=== PATIENT | female | born 1970 | race Caucasian/White ===

== ENCOUNTER 2018-02-15 13:55 | Observation (INO) | payer OTHER ==
[~2018-02-15] VITALS: Ht 160 cm; Wt 98.4 kg
[2018-02-15] MEDS ORDERED: ZOLP5 PO (14:20)
[2018-02-15 15:18] LABS: BASOPHILS ABSOLUTE AUTO 0.05 K/mm3 (0.00-0.23); BASOPHILS PERCENT AUTO 0 % (0-2); EOSINOPHILS ABSOLUTE AUTO 0.02 K/mm3 (0.00-0.68); EOSINOPHILS PERCENT AUTO 0 % (0-6); Hematocrit 44.6 % (33.0-51.0); Hemoglobin 14.9 g/dL (11.5-16.0); IMMATURE GRAN ABSOLUTE AUTO 0.09 K/mm3 (0.00-0.10); IMMATURE GRAN PERCENT AUTO 1 % (0-1); LYMPHOCYTES ABSOLUTE AUTO 3.16 K/mm3 (0.84-5.20); LYMPHOCYTES PERCENT AUTO 18 % (21-46); MONOCYTES ABSOLUTE AUTO 1.04 K/mm3 (0.16-1.47); MONOCYTES PERCENT AUTO 6 % (4-13); Mean Corpuscular HGB 30.8 pg (26.0-34.0); Mean Corpuscular HGB Conc 33.4 g/dL (31.5-36.5); Mean Corpuscular Volume 92 fL (80-100); Mean Platelet Volume 10.7 fL (9.1-12.4); NEUTROPHILS ABSOLUTE AUTO 13.15 K/mm3 (1.96-9.15); NEUTROPHILS PERCENT AUTO 75 % (41-73); Platelet Count 375 K/mm3 (150-400); RDW Coefficient Variation 14.4 % (11.7-14.2); RDW Standard Deviation 49.1 fL (35.1-46.3); Red Blood Cell Count 4.83 M/mm3 (3.80-5.20); White Blood Cell Count 17.51 K/mm3 (4.00-11.30)
[2018-02-15 15:36] LABS: Alanine Aminotransfer (ALT/SGP 61 U/L (12-78); Albumin, Blood 4.2 g/dL (3.4-5.0); Albumin/Globulin Ratio 1.2 (0.8-1.8); Alk Phos 98 U/L (50-136); Anion Gap 7 mmol/L (6-16); Aspartate Aminotrans (AST/SGOT 123 U/L (12-37); Bilirubin, Total 0.7 mg/dL (0.1-1.0); Blood Urea Nitrogen 13 mg/dL (8-24); Bun/Creatinine Ratio 25.6 (12.0-20.0); CO2, Blood 25 mmol/L (21-32); Calcium, Blood 9.4 mg/dL (8.5-10.1); Chloride, Blood 108 mmol/L (98-108); Creatinine, Blood 0.51 mg/dL (0.40-1.00); Globulin, Blood 3.6 g/dL (2.2-4.0); Glomerular Filtration Rate >60 (60-); Glucose, Blood 85 mg/dL (70-99); Potassium, Blood 3.6 mmol/L (3.5-5.5); Sodium, Blood 140 mmol/L (136-145); Total Protein, Blood 7.8 g/dL (6.4-8.2)
[2018-02-15] MEDS ORDERED: CYCL10 PO (21:54)
[2018-02-15] MEDS ORDERED: GABA600 PO (21:55)
[2018-02-15] MEDS ORDERED: AMLODIPINE-ATO1 EAC4 PO (21:58)
[2018-02-17] MEDS ORDERED: Percocet 10-321 EACH PO (14:05)
== END 2018-02-17 14:41 | disposition home or self-care (01) ==
LOC: ER 13:55 → SURS 13:56 → ER 18:21 → SURS 18:21
PROVIDERS: Emergency Medicine; Surgery
PROC: BF03YZZ Plain Radiography of Gallbladder and Bile Ducts using Other Contrast (ICD-10-PCS; 2018-02-16)
PROC: 0FT44ZZ Resection of Gallbladder, Percutaneous Endoscopic Approach (ICD-10-PCS; principal; 2018-02-16 08:15)
DX: K80.10 Calculus of gallbladder with chronic cholecystitis without obstruction (principal); I10 Essential (primary) hypertension; Z88.1 Allergy status to other antibiotic agents; Z79.899 Other long term (current) drug therapy
CPT/HCPCS: 36415; 74300; 76705; 80053; 83690; 85025; 88304; 93005; 93010; 96361; 96374; 96375; 96376; 99285-25; C1729; G0378; J0780; J1100; J1170; J1885; J2060; J2250; J2405; J2543; J2710; J3010; J7030

== ENCOUNTER 2018-03-02 23:07 | Observation (INO) | payer OTHER ==
[~2018-03-02] VITALS: Ht 177.8 cm; Wt 79.4 kg
[~2018-03-02 23:07] MED LIST: AMLODIPINE-ATO1 EAC4 PO; CYCL10 PO; GABA600 PO; Percocet 10-321 EACH PO; ZOLP5 PO
[2018-03-03 00:34] LABS: BASOPHILS ABSOLUTE AUTO 0.03 K/mm3 (0.00-0.23); BASOPHILS PERCENT AUTO 0 % (0-2); EOSINOPHILS ABSOLUTE AUTO 0.25 K/mm3 (0.00-0.68); EOSINOPHILS PERCENT AUTO 2 % (0-6); Hematocrit 43.9 % (33.0-51.0); Hemoglobin 14.5 g/dL (11.5-16.0); IMMATURE GRAN ABSOLUTE AUTO 0.06 K/mm3 (0.00-0.10); IMMATURE GRAN PERCENT AUTO 0 % (0-1); LYMPHOCYTES ABSOLUTE AUTO 3.45 K/mm3 (0.84-5.20); LYMPHOCYTES PERCENT AUTO 24 % (21-46); MONOCYTES ABSOLUTE AUTO 1.04 K/mm3 (0.16-1.47); MONOCYTES PERCENT AUTO 7 % (4-13); Mean Corpuscular Volume 94 fL (80-100); Mean Platelet Volume 10.8 fL (9.1-12.4); NEUTROPHILS ABSOLUTE AUTO 9.67 K/mm3 (1.96-9.15); NEUTROPHILS PERCENT AUTO 67 % (41-73); Platelet Count 336 K/mm3 (150-400); RDW Standard Deviation 48.3 fL (35.1-46.3); Red Blood Cell Count 4.67 M/mm3 (3.80-5.20)
[2018-03-03 00:55] LABS: Alanine Aminotransfer (ALT/SGP 24 U/L (12-78); Albumin, Blood 4.1 g/dL (3.4-5.0); Alk Phos 91 U/L (50-136); Anion Gap 7 mmol/L (6-16); Aspartate Aminotrans (AST/SGOT 13 U/L (12-37); Bilirubin, Total 0.3 mg/dL (0.1-1.0); Blood Urea Nitrogen 10 mg/dL (8-24); Bun/Creatinine Ratio 18.7 (12.0-20.0); CO2, Blood 27 mmol/L (21-32); Calcium, Blood 9.3 mg/dL (8.5-10.1); Chloride, Blood 105 mmol/L (98-108); Creatinine, Blood 0.54 mg/dL (0.40-1.00); Globulin, Blood 4.3 g/dL (2.2-4.0); Glomerular Filtration Rate >60 (60-); Glucose, Blood 92 mg/dL (70-99); Potassium, Blood 3.7 mmol/L (3.5-5.5); Sodium, Blood 139 mmol/L (136-145); Total Protein, Blood 8.4 g/dL (6.4-8.2)
[2018-03-03] MEDS ORDERED: GABA300 PO (04:16)
[2018-03-03] MEDS ORDERED: AMLO5 PO (04:17)
[2018-03-03] MEDS ORDERED: NAPR500 PO (04:17)
[2018-03-03] MEDS ORDERED: FAMO10 PO (04:18)
[2018-03-03 08:24] LABS: BASOPHILS ABSOLUTE AUTO 0.03 K/mm3 (0.00-0.23); BASOPHILS PERCENT AUTO 0 % (0-2); EOSINOPHILS PERCENT AUTO 1 % (0-6); Hematocrit 42.7 % (33.0-51.0); IMMATURE GRAN ABSOLUTE AUTO 0.04 K/mm3 (0.00-0.10); IMMATURE GRAN PERCENT AUTO 0 % (0-1); LYMPHOCYTES ABSOLUTE AUTO 3.88 K/mm3 (0.84-5.20); LYMPHOCYTES PERCENT AUTO 28 % (21-46); MONOCYTES ABSOLUTE AUTO 1.14 K/mm3 (0.16-1.47); MONOCYTES PERCENT AUTO 8 % (4-13); Mean Corpuscular HGB 31.3 pg (26.0-34.0); Mean Corpuscular HGB Conc 32.8 g/dL (31.5-36.5); Mean Corpuscular Volume 95 fL (80-100); Mean Platelet Volume 10.5 fL (9.1-12.4); NEUTROPHILS ABSOLUTE AUTO 8.58 K/mm3 (1.96-9.15); NEUTROPHILS PERCENT AUTO 62 % (41-73); Platelet Count 284 K/mm3 (150-400); RDW Standard Deviation 49.5 fL (35.1-46.3); Red Blood Cell Count 4.48 M/mm3 (3.80-5.20); White Blood Cell Count 13.77 K/mm3 (4.00-11.30)
[2018-03-03 08:29] LABS: Anion Gap 9 mmol/L (6-16); Blood Urea Nitrogen 7 mg/dL (8-24); Bun/Creatinine Ratio 16.2 (12.0-20.0); CO2, Blood 21 mmol/L (21-32); Calcium, Blood 8.6 mg/dL (8.5-10.1); Chloride, Blood 108 mmol/L (98-108); Creatinine, Blood 0.43 mg/dL (0.40-1.00); Glomerular Filtration Rate >60 (60-); Glucose, Blood 84 mg/dL (70-99); Potassium, Blood 4.8 mmol/L (3.5-5.5); Sodium, Blood 138 mmol/L (136-145)
[2018-03-04] MEDS ORDERED: Percocet 5-3251 EACH PO (11:52)
== END 2018-03-04 12:36 | disposition home or self-care (01) ==
LOC: ER 23:07 → SURS 23:08
PROVIDERS: Emergency Medicine; Surgery
PROC: 0WJF0ZZ Inspection of Abdominal Wall, Open Approach (ICD-10-PCS; principal; 2018-03-03 16:00)
DX: T81.4XXA Infection following a procedure, initial encounter (principal); L03.316 Cellulitis of umbilicus; I10 Essential (primary) hypertension; Z87.891 Personal history of nicotine dependence; Z90.49 Acquired absence of other specified parts of digestive tract; Z88.1 Allergy status to other antibiotic agents
CPT/HCPCS: 36415; 74177; 80048; 80053; 83605; 83690; 85025; 96361; 96374; 96375; 96376; 99285-25; G0378; J1100; J1170; J1885; J2060; J2250; J2405; J2710; J3010; J7030; J7120; Q9967

== ENCOUNTER 2018-07-03 10:28 | Emergency (ER) | payer SELFPAY ==
[~2018-07-03] VITALS: Ht 160 cm; Wt 90.7 kg
[~2018-07-03 10:28] MED LIST changes: +AMLO5 PO; +FAMO10 PO; +GABA300 PO; +NAPR500 PO; +Percocet 5-3251 EACH PO
[2018-07-03] MEDS ORDERED: FAMO20 (10:57)
[2018-07-03] MEDS ORDERED: Norco 5-325 Ta1 EACH PO (11:34)
== END 2018-07-03 11:37 | disposition home or self-care (01) ==
LOC: ER 10:28
DX: S46.001A Unspecified injury of muscle(s) and tendon(s) of the rotator cuff of right shoulder, initial encounter (principal); X50.9XXA Other and unspecified overexertion or strenuous movements or postures, initial encounter; Z88.1 Allergy status to other antibiotic agents; Z79.899 Other long term (current) drug therapy; I10 Essential (primary) hypertension; K21.9 Gastro-esophageal reflux disease without esophagitis; Z87.891 Personal history of nicotine dependence
CPT/HCPCS: 99282

== ENCOUNTER 2018-09-27 13:28 | Emergency (ER) | payer SELFPAY ==
[~2018-09-27] VITALS: Ht 160 cm; Wt 90.7 kg
[~2018-09-27 13:28] MED LIST changes: +FAMO20; +Norco 5-325 Ta1 EACH PO
[2018-09-27] MEDS ORDERED: Naprosyn500 MG PO (13:57)
[2018-09-27] MEDS ORDERED: CEFP200 PO (13:57)
== END 2018-09-27 14:02 | disposition home or self-care (01) ==
LOC: ER 13:28
DX: H66.92 Otitis media, unspecified, left ear (principal); Z88.1 Allergy status to other antibiotic agents; Z79.899 Other long term (current) drug therapy; Z87.891 Personal history of nicotine dependence

== ENCOUNTER 2019-08-06 15:54 | Emergency (ER) | payer SELFPAY ==
[~2019-08-06] VITALS: Ht 160 cm; Wt 77.1 kg
[~2019-08-06 15:54] MED LIST changes: +ACET325 PO; +CEFP200 PO; +CLARITIN10 MG PO; +Cleocin HCl150 MG PO; +Naprosyn500 MG PO; +Prednisone20 MG PO
[2019-08-06] MEDS ORDERED: ACETAMINOPHEN500 MG PO (18:16)
[2019-08-06] MEDS ORDERED: KETO10 PO (18:16)
== END 2019-08-06 18:53 | disposition home or self-care (01) ==
LOC: ER 15:54
DX: S50.11XA Contusion of right forearm, initial encounter (principal); W22.8XXA Striking against or struck by other objects, initial encounter; Z88.1 Allergy status to other antibiotic agents; Z79.899 Other long term (current) drug therapy; Z87.891 Personal history of nicotine dependence
CPT/HCPCS: 36415; 73090; 96374; 99283-25; J3010

== ENCOUNTER 2019-08-29 21:27 | Observation (INO) | payer SELFPAY ==
[~2019-08-29] VITALS: Ht 160 cm; Wt 77.1 kg
[~2019-08-29 21:27] MED LIST changes: +ACETAMINOPHEN500 MG PO; +KETO10 PO
[2019-08-29] MEDS ORDERED: MIRT15 PO (22:20)
[2019-08-29] MEDS ORDERED: CLON.1 PO (22:20)
[2019-08-29] MEDS ORDERED: AMLO5 PO (22:20)
[2019-08-29 22:31] LABS: Source, Urine Clean Catch
[2019-08-29 22:35] LABS: Bilirubin, Urine Neg (Neg); Blood, Urine 1+ (Neg); Glucose Qualitative, Urine Neg (Neg); Ketones, Urine Neg (Neg); Leukocyte Esterase, Urine Neg (Neg); Nitrite, Urine Neg (Neg); Protein, Urine 1+ (Neg); Urobilinogen, Urine NORM (Normal)
[2019-08-29 22:48] LABS: U Amphetamine Screen Not Detected; U Barbituate Screen Not Detected; U Benzodiazapine Screen Not Detected; U Buprenorphine Screen Not Detected; U Cannabinoids Screen DETECTED; U Cocaine Screen Not Detected; U Methadone Screen Not Detected; U Methamphetamine Screen Not Detected; U Opiates Screen Not Detected; U Oxycodone Screen Not Detected; U Phencyclidine Screen Not Detected; U Propoxyphene Screen Not Detected
[2019-08-29 22:53] LABS: Appearance, Urine Clear (Clear); Bacteria Not Seen /hpf; Color, Urine Yellow (P-Yellow); Red Blood Cells, Urine 0-2 /hpf (0-2); Squamous Epithelial Cells Few /hpf (Few); White Blood Cells, Urine Not Seen /hpf (0-5)
[2019-08-29 23:47] LABS: BASOPHILS ABSOLUTE AUTO 0.04 K/mm3 (0.00-0.23); BASOPHILS PERCENT AUTO 0 % (0-2); EOSINOPHILS ABSOLUTE AUTO 0.18 K/mm3 (0.00-0.68); EOSINOPHILS PERCENT AUTO 1 % (0-6); Hematocrit 46.9 % (33.0-51.0); Hemoglobin 15.5 g/dL (11.5-16.0); IMMATURE GRAN ABSOLUTE AUTO 0.03 K/mm3 (0.00-0.10); IMMATURE GRAN PERCENT AUTO 0 % (0-1); LYMPHOCYTES ABSOLUTE AUTO 3.92 K/mm3 (0.84-5.20); LYMPHOCYTES PERCENT AUTO 32 % (21-46); MONOCYTES ABSOLUTE AUTO 0.72 K/mm3 (0.16-1.47); MONOCYTES PERCENT AUTO 6 % (4-13); Mean Corpuscular HGB 30.5 pg (26.0-34.0); Mean Corpuscular Volume 92 fL (80-100); Mean Platelet Volume 11.1 fL (9.1-12.4); NEUTROPHILS ABSOLUTE AUTO 7.57 K/mm3 (1.96-9.15); NEUTROPHILS PERCENT AUTO 61 % (41-73); Platelet Count 306 K/mm3 (150-400); RDW Coefficient Variation 13.2 % (11.7-14.2); RDW Standard Deviation 45.5 fL (35.1-46.3); Red Blood Cell Count 5.09 M/mm3 (3.80-5.20); White Blood Cell Count 12.46 K/mm3 (4.00-11.30)
[2019-08-30 00:05] LABS: Alanine Aminotransfer (ALT/SGP 24 U/L (12-78); Albumin, Blood 4.2 g/dL (3.4-5.0); Albumin/Globulin Ratio 1.1 (0.8-1.8); Alk Phos 63 U/L (50-136); Anion Gap 6 mmol/L (6-16); Aspartate Aminotrans (AST/SGOT 25 U/L (12-37); Bilirubin, Total 0.1 mg/dL (0.1-1.0); Blood Urea Nitrogen 19 mg/dL (8-24); Bun/Creatinine Ratio 31.3 (12.0-20.0); CO2, Blood 27 mmol/L (21-32); Calcium, Blood 9.6 mg/dL (8.5-10.1); Chloride, Blood 107 mmol/L (98-108); Creatinine, Blood 0.61 mg/dL (0.40-1.00); Ethanol (Alcohol), Blood, Med <3 mg/dL; Globulin, Blood 3.7 g/dL (2.2-4.0); Glomerular Filtration Rate >60 (60-); Glucose, Blood 103 mg/dL (70-99); Potassium, Blood 3.4 mmol/L (3.5-5.5); Salicylate <1.7 mg/dL (2.8-20.0); Sodium, Blood 140 mmol/L (136-145); Total Protein, Blood 7.9 g/dL (6.4-8.2)
[2019-08-30 00:19] LABS: Acetaminophen, Random <2.0 ug/mL (10.0-30.0)
== END 2019-08-31 13:38 | disposition home or self-care (01) ==
LOC: ER 21:27 → EOR 21:28
PROVIDERS: Physician Assistant; ADMIT Emergency Medicine
DX: F31.60 Bipolar disorder, current episode mixed, unspecified (principal); F60.3 Borderline personality disorder; I10 Essential (primary) hypertension; Z87.891 Personal history of nicotine dependence
CPT/HCPCS: 36415; 80053; 81001; 81025; 85025; 99285; G0378; G0480; Q0163; Q3014

== ENCOUNTER 2019-09-13 15:36 | Observation (INO) | payer OTHER ==
[~2019-09-13] VITALS: Ht 162.6 cm; Wt 77.1 kg
[~2019-09-13 15:36] MED LIST changes: +CLON.1 PO; +MIRT15 PO
[2019-09-13] MEDS ORDERED: AMLO5 PO (16:16)
[2019-09-13] MEDS ORDERED: CLON1 PO (16:16)
[2019-09-13] MEDS ORDERED: AMLO10 PO (16:17)
[2019-09-13] MEDS ORDERED: OLAN10 PO (16:17)
[2019-09-13] MEDS ORDERED: CLON.1 PO (16:17)
[2019-09-13] MEDS ORDERED: MIRT15 PO (16:19)
[2019-09-13 16:32] LABS: BASOPHILS ABSOLUTE AUTO 0.02 K/mm3 (0.00-0.23); BASOPHILS PERCENT AUTO 0 % (0-2); EOSINOPHILS ABSOLUTE AUTO 0.09 K/mm3 (0.00-0.68); EOSINOPHILS PERCENT AUTO 1 % (0-6); Hematocrit 42.1 % (33.0-51.0); Hemoglobin 14.2 g/dL (11.5-16.0); IMMATURE GRAN ABSOLUTE AUTO 0.04 K/mm3 (0.00-0.10); IMMATURE GRAN PERCENT AUTO 0 % (0-1); LYMPHOCYTES ABSOLUTE AUTO 3.32 K/mm3 (0.84-5.20); LYMPHOCYTES PERCENT AUTO 34 % (21-46); MONOCYTES ABSOLUTE AUTO 0.48 K/mm3 (0.16-1.47); MONOCYTES PERCENT AUTO 5 % (4-13); Mean Corpuscular HGB 30.9 pg (26.0-34.0); Mean Corpuscular HGB Conc 33.7 g/dL (31.5-36.5); Mean Corpuscular Volume 92 fL (80-100); Mean Platelet Volume 10.4 fL (9.1-12.4); NEUTROPHILS ABSOLUTE AUTO 5.95 K/mm3 (1.96-9.15); NEUTROPHILS PERCENT AUTO 60 % (41-73); Platelet Count 337 K/mm3 (150-400); RDW Standard Deviation 47.6 fL (35.1-46.3)
[2019-09-13 16:55] LABS: Alanine Aminotransfer (ALT/SGP 28 U/L (12-78); Albumin, Blood 3.9 g/dL (3.4-5.0); Alk Phos 54 U/L (50-136); Anion Gap 5 mmol/L (6-16); Aspartate Aminotrans (AST/SGOT 25 U/L (12-37); Bilirubin, Total 0.3 mg/dL (0.1-1.0); Blood Urea Nitrogen 13 mg/dL (8-24); Bun/Creatinine Ratio 29.3 (12.0-20.0); CO2, Blood 25 mmol/L (21-32); Calcium, Blood 9.4 mg/dL (8.5-10.1); Chloride, Blood 108 mmol/L (98-108); Creatinine, Blood 0.44 mg/dL (0.40-1.00); Globulin, Blood 3.8 g/dL (2.2-4.0); Glomerular Filtration Rate >60 (60-); Glucose, Blood 96 mg/dL (70-99); Potassium, Blood 3.8 mmol/L (3.5-5.5); Salicylate <1.7 mg/dL (2.8-20.0); Sodium, Blood 138 mmol/L (136-145); Total Protein, Blood 7.7 g/dL (6.4-8.2)
[2019-09-13 17:13] LABS: Acetaminophen, Random <2.0 ug/mL (10.0-30.0); Ethanol (Alcohol), Blood, Med <3 mg/dL
[2019-09-13 18:19] LABS: Source, Urine Voided
[2019-09-13 18:30] LABS: Appearance, Urine Clear (Clear); Bilirubin, Urine Neg (Neg); Blood, Urine Neg (Neg); Color, Urine Yellow (P-Yellow); Glucose Qualitative, Urine Neg (Neg); Ketones, Urine Neg (Neg); Leukocyte Esterase, Urine Neg (Neg); Nitrite, Urine Neg (Neg); Protein, Urine Neg (Neg); Specific Gravity, Urine 1.015 (1.003-1.022); Urobilinogen, Urine NORM (Normal); pH, Urine 6.5 (5.0-8.0)
[2019-09-13 18:46] LABS: U Amphetamine Screen Not Detected; U Barbituate Screen Not Detected; U Benzodiazapine Screen Not Detected; U Buprenorphine Screen Not Detected; U Cannabinoids Screen DETECTED; U Cocaine Screen Not Detected; U Methadone Screen Not Detected; U Methamphetamine Screen Not Detected; U Opiates Screen Not Detected; U Oxycodone Screen Not Detected; U Phencyclidine Screen Not Detected; U Propoxyphene Screen Not Detected
[2019-09-14] MEDS ORDERED: RISP2 PO (14:38)
== END 2019-09-14 15:05 | disposition home or self-care (01) ==
LOC: ER 15:36 → EOR 15:37
PROVIDERS: ADMIT Emergency Medicine
DX: F32.9 Major depressive disorder, single episode, unspecified (principal); I10 Essential (primary) hypertension; Z88.1 Allergy status to other antibiotic agents; Z87.891 Personal history of nicotine dependence; Z79.899 Other long term (current) drug therapy
CPT/HCPCS: 80053; 81003; 81025; 85025; 99285; G0378; G0480; Q3014

== ENCOUNTER 2019-09-14 19:29 | Inpatient (IN) | payer OTHER ==
[~2019-09-14] VITALS: Ht 160 cm; Wt 80.6 kg
[~2019-09-14 19:29] MED LIST changes: +AMLO10 PO; +CLON1 PO; +OLAN10 PO; +RISP2 PO
[2019-09-14 20:16] LABS: BASOPHILS ABSOLUTE AUTO 0.03 K/mm3 (0.00-0.23); BASOPHILS PERCENT AUTO 0 % (0-2); EOSINOPHILS ABSOLUTE AUTO 0.11 K/mm3 (0.00-0.68); EOSINOPHILS PERCENT AUTO 1 % (0-6); Hematocrit 38.6 % (33.0-51.0); Hemoglobin 12.6 g/dL (11.5-16.0); IMMATURE GRAN ABSOLUTE AUTO 0.04 K/mm3 (0.00-0.10); IMMATURE GRAN PERCENT AUTO 0 % (0-1); LYMPHOCYTES ABSOLUTE AUTO 2.81 K/mm3 (0.84-5.20); LYMPHOCYTES PERCENT AUTO 25 % (21-46); MONOCYTES ABSOLUTE AUTO 0.58 K/mm3 (0.16-1.47); MONOCYTES PERCENT AUTO 5 % (4-13); Mean Corpuscular HGB 30.1 pg (26.0-34.0); Mean Corpuscular HGB Conc 32.6 g/dL (31.5-36.5); Mean Corpuscular Volume 92 fL (80-100); Mean Platelet Volume 10.7 fL (9.1-12.4); NEUTROPHILS ABSOLUTE AUTO 7.84 K/mm3 (1.96-9.15); NEUTROPHILS PERCENT AUTO 69 % (41-73); Platelet Count 307 K/mm3 (150-400); RDW Coefficient Variation 14.2 % (11.7-14.2); RDW Standard Deviation 48.7 fL (35.1-46.3); Red Blood Cell Count 4.18 M/mm3 (3.80-5.20); White Blood Cell Count 11.41 K/mm3 (4.00-11.30)
[2019-09-14 20:30] LABS: Alanine Aminotransfer (ALT/SGP 30 U/L (12-78); Albumin, Blood 3.5 g/dL (3.4-5.0); Albumin/Globulin Ratio 0.9 (0.8-1.8); Alk Phos 49 U/L (50-136); Anion Gap 6 mmol/L (6-16); Aspartate Aminotrans (AST/SGOT 20 U/L (12-37); Bilirubin, Total 0.1 mg/dL (0.1-1.0); Blood Urea Nitrogen 16 mg/dL (8-24); Bun/Creatinine Ratio 26.5 (12.0-20.0); CO2, Blood 25 mmol/L (21-32); Calcium, Blood 9.5 mg/dL (8.5-10.1); Chloride, Blood 109 mmol/L (98-108); Globulin, Blood 3.7 g/dL (2.2-4.0); Glomerular Filtration Rate >60 (60-); Glucose, Blood 141 mg/dL (70-99); Potassium, Blood 3.8 mmol/L (3.5-5.5); Sodium, Blood 140 mmol/L (136-145); Total Protein, Blood 7.2 g/dL (6.4-8.2); Troponin I <0.015 ng/mL (0.000-0.040)
[2019-09-14 20:31] LABS: Source, Urine Catheter
[2019-09-14 20:37] LABS: Bilirubin, Urine Neg (Neg); Blood, Urine Neg (Neg); Glucose Qualitative, Urine Neg (Neg); Ketones, Urine Neg (Neg); Leukocyte Esterase, Urine Neg (Neg); Nitrite, Urine Neg (Neg); Protein, Urine Neg (Neg); Urobilinogen, Urine NORM (Normal)
[2019-09-14 20:43] LABS: Appearance, Urine Clear (Clear); Color, Urine Yellow (P-Yellow)
[2019-09-14 20:57] LABS: U Amphetamine Screen Not Detected; U Barbituate Screen Not Detected; U Benzodiazapine Screen DETECTED; U Buprenorphine Screen Not Detected; U Cannabinoids Screen DETECTED; U Cocaine Screen Not Detected; U Methadone Screen Not Detected; U Methamphetamine Screen Not Detected; U Opiates Screen Not Detected; U Oxycodone Screen Not Detected; U Phencyclidine Screen Not Detected; U Propoxyphene Screen Not Detected
[2019-09-14 21:25] LABS: International Normalized Ratio 0.94; Prothrombin Time Results 10.1 Sec (9.7-11.5)
[2019-09-14 21:44] LABS: Acetaminophen, Random <2.0 ug/mL (10.0-30.0); Ethanol (Alcohol), Blood, Med <3 mg/dL; Salicylate <1.7 mg/dL (2.8-20.0)
[2019-09-15 00:20] LABS: Base Excess Venous -0.4 mmol/L; PCO2 Venous 42.4 mmHg (38-42); PO2 Venous 110 mmHg (38-42); pH Blood Venous 7.38 (7.34-7.37)
--- NOTE | 2019-09-15 00:35 | NUR ---
ASSUMPTION OF CARE: REPORT RECIEVED FROM TELEPHONE ANSWERERNEAL Berrios, PATIENT ARRIVED TO ICU 16 AT APPR[address] [facility] FROM ER. PATIENT RESPONDS TO STERNAL PRESSURE AND WILL STATE YES OR NO BUT IMMEDIATLY FALLS BACK TO SLEEP, LETHARGIC. PATIENT TRANSFERED FROM [facility] TO ICU BED VIA SLIDE SHEET ADN 5 STAFF, PATIENT PLACED ON 2L O2 FOR SATURATION AVERAGING 87%, O2 SATURATION THEN INCREASED TO 95%. PATIENT BLOOD PRESSURES LOW FLUCTUATING BETWEEN SYSTOLIC 75 TO 85 WITH MAP RANGING FROM 60 TO 68, GEOGRAPHY FACULTY MEMBER NORI AT BEDSIDE AND ORDERS RECIEVED, SEE EMAR. PATIENTS BP SLOWLY IMPROVING WITH BOLUSES AND MEDICATION ADMIN (SEE EMAR). PATIENT SKIN C/D/I, BILATERAL WRIST RESTRAINTS IN PLACE AND SKIN CHECK COMPLETED WITH NO SIGN OF SKIN IRRITATION NOTED, PULSES AND CIRRCULATION INTACT. PATIENT HAS INTERMITTENT EPISODES OF THRASHING IN BED AND PULLING AT LINES AND TUBES THAT SHE CAN REACH, ALL LINES AND TUBES HIDDEN POSSIBLE, 1:1 SITTER OBSERVING. BOTELLO IN PLACE, PATENT AND DRAINING TO GRAVITY PER MD ORDERS. ALL ROOM ASSESSMENTS COMPLETED FOR SI PATIENT, MONITORING CLOSELY. UPDATED POISON CONTROL OVER PHONE AT APPROX 0030 ADMISSION NOT FULLY COMPLETED PATIENT IS UNABLE TO ANSWER QUESTIONS AT THIS TIME.
--- NOTE | 2019-09-15 02:05 | NUR ---
SUICIDE SEVERITY RISK ASSESSMENT: PATIENT IS KEPT AT SAME RISK LEVEL D/T THE PATIENTS INABILITY TO ANSWER QUESTIONS, TOO LETHARGIC, MD AWARE.
--- NOTE | 2019-09-15 05:42 | NUR ---
SHIFT SUMMARY: PATIENT REMAINED LETHARGIC BUT AROUSABLE TO TOUCH THROUGHOUT SHIFT. PATIENT BLOOD PRESSURES IMPROVING STEADILY THROUGHOUT SHIFT, SWITCHED FROM NS TO LR PER PHARMACY RETAIL SUPPORT SPECIALIST ORDERS. PATIENT O2 SAT FLUCTUATING BETWEEN 87 AND 89%, 5L NC REQUIRED TO KEEP HER AT APPROX 90 TO 95% SATURATION. ALL OTHER VSS, SITTER PRESENT FOR 1:1, RESTRAINTS D/C'D AT APPROX 0230 PATIENT IS SLEEPING AND NOT PULLING AT LINES OR TUBES. SCD'S ATTEMPTED BUT PATIENT AGGITATED WITH THEM ON.
--- NOTE | 2019-09-15 07:05 | NUR ---
REPORT FROM SANGEETA DE JESUS. ASSUMED PT CARE. SITTER ROOM SIDE FOR PT SAFETY. LAURENCE.
[2019-09-15 08:00] LABS: BASOPHILS ABSOLUTE AUTO 0.01 K/mm3 (0.00-0.23); BASOPHILS PERCENT AUTO 0 % (0-2); EOSINOPHILS ABSOLUTE AUTO 0.08 K/mm3 (0.00-0.68); EOSINOPHILS PERCENT AUTO 1 % (0-6); Hematocrit 33.6 % (33.0-51.0); Hemoglobin 11.3 g/dL (11.5-16.0); IMMATURE GRAN ABSOLUTE AUTO 0.02 K/mm3 (0.00-0.10); IMMATURE GRAN PERCENT AUTO 0 % (0-1); LYMPHOCYTES ABSOLUTE AUTO 2.14 K/mm3 (0.84-5.20); LYMPHOCYTES PERCENT AUTO 28 % (21-46); MONOCYTES ABSOLUTE AUTO 0.55 K/mm3 (0.16-1.47); MONOCYTES PERCENT AUTO 7 % (4-13); Mean Corpuscular HGB 30.9 pg (26.0-34.0); Mean Corpuscular HGB Conc 33.6 g/dL (31.5-36.5); Mean Corpuscular Volume 92 fL (80-100); Mean Platelet Volume 10.7 fL (9.1-12.4); NEUTROPHILS ABSOLUTE AUTO 4.78 K/mm3 (1.96-9.15); NEUTROPHILS PERCENT AUTO 63 % (41-73); Platelet Count 238 K/mm3 (150-400); RDW Coefficient Variation 13.9 % (11.7-14.2); RDW Standard Deviation 47.3 fL (35.1-46.3); Red Blood Cell Count 3.66 M/mm3 (3.80-5.20); White Blood Cell Count 7.58 K/mm3 (4.00-11.30)
[2019-09-15 08:19] LABS: Alanine Aminotransfer (ALT/SGP 22 U/L (12-78); Albumin/Globulin Ratio 1.1 (0.8-1.8); Alk Phos 40 U/L (50-136); Anion Gap 5 mmol/L (6-16); Aspartate Aminotrans (AST/SGOT 16 U/L (12-37); Bilirubin, Total 0.4 mg/dL (0.1-1.0); Blood Urea Nitrogen 12 mg/dL (8-24); Bun/Creatinine Ratio 28.2 (12.0-20.0); CO2, Blood 25 mmol/L (21-32); Calcium, Blood 8.8 mg/dL (8.5-10.1); Chloride, Blood 112 mmol/L (98-108); Creatinine, Blood 0.43 mg/dL (0.40-1.00); Globulin, Blood 2.8 g/dL (2.2-4.0); Glomerular Filtration Rate >60 (60-); Glucose, Blood 109 mg/dL (70-99); Potassium, Blood 3.7 mmol/L (3.5-5.5); Sodium, Blood 142 mmol/L (136-145); Total Protein, Blood 5.8 g/dL (6.4-8.2)
--- NOTE | 2019-09-15 08:40 | NUR ---
DR MONTEIRO AT BEDSIDE. PLAN TO CONTINUE TO MONITOR.
--- NOTE | 2019-09-15 09:17 | NUR ---
KYLE HUGHES WITH ATTEMPTED TO SEE PT FOR ROUNDING. PT UNABLE TO PARTICIPATE IN SAFETY PLAN.
--- NOTE | 2019-09-15 09:47 | NUR ---
Unable to engage patient in Safety Plan due to over-riding medical issues and drowsiness. Pt could not acknowledge my presence. RN notified and agreed that tomorrow might be a possibility, as medically patient is not able to be discharged. Renetta Lubin M.Ed., [facility]
--- NOTE | 2019-09-15 10:41 | NUR ---
UPDATED POISON CONTROL RE LABS/VS/MEDICATIONS. THEY PLAN TO CALL AGAIN LATER.
--- NOTE | 2019-09-15 16:00 | NUR ---
SPOKE WITH PT ON PHONE. UPDATE PROVIDED.
--- NOTE | 2019-09-15 17:15 | NUR ---
BINMAN ASSISTED FEEING PT.
--- NOTE | 2019-09-15 17:58 | NUR ---
Per admit trigger, I was tasked to meet with Funmilayo to calvin prayewr and encouragement. Today, she is not lucid and very sleepy. Prayer provided at bedside, and I will attempt conversation in coming days.
--- NOTE | 2019-09-15 18:00 | NUR ---
SHIFT SUMMARY PT REMAINS 1:1 WITH A SITTER OUTSIDE DOOR. PT MORE INTERACTIVE AT END OF SHIFT. PT STILL HAVING HYPOTENSION DESPITE FLUIDS. MAP MOSTLY GREATER THAN 65. KYLE HUGHES ATTEMPT TO ROUND ON PT THIS AM. PT NOT AWAKE ENOUGH FOR EVAL. DR FLEMING ATTEMPT TO ROUND ON PT AND PT NOT AWAKE ENOUGH TO PARTICIPATE IN INTERVIEW. PT BOTELLO DRAINING LORENZO COLORED URINE. PT HAD PRODUCTIVE COUGH THIS MORNING AFTER ORAL CARE. THICK PHLEGM COUGHED UP. LR STILL INFUSING AT 300ML/HR. URINE OUTPUT 420ML. PT ALERT TO SELF ONLY. SKIN WNL, ABRASIONS TO ARMS LOOK HEALED. BOWEL SOUNDS HYPOACTIVE. PT TOLERATED CLEAR LIQUIDS. WILL CONT TO MONITOR AND REPORT TO ONCOMING SHIFT.
--- NOTE | 2019-09-15 18:24 | NUR ---
PT SHIVERING. TEMP 99.3, BP 78/43 MAP 59. PLAN TO START LR BOLUS PER EMAR. WARM BLANKET PROVIDED AT THIS TIME. PT C/O RIGHT SHOULDER PAIN.
--- NOTE | 2019-09-15 19:15 | NUR ---
ASSUME CARE: REPORT RECIEVED FROM RU OFF GOING RN. MONITOR INTACT SHOWING SINUS TACH HEART RATE 100'S-110'S. .LR BOLUS INFUSING SECONDARY TO LOW BLOOD PRESSURES. LUNG SOUNDS CLEAR IN THE UPPER LOBES WITH DECREASED SOUNDS IN THE BASES. SPO2 WITH O2 AT 5L/MIN PER NASAL CANNULA 93-98% ABDOMEN SOFT WITH BOWEL SOUNDS FOUR QUADS. BOTELLO PATENT DRAINING LORENZO URINE. PEDAL PULSES PRESENT NO EDEMA NOTED. CONTINUE TO MONITOR AND REPORT CHANGE IN PATEINT CONDITION.
--- NOTE | 2019-09-15 20:00 | NUR ---
ABELINO OLEO HASHER AND RENDERER NOTIFIED OF CONTINUING LOW BLOOD PRESSURES WITH MAP LESS THAN 65. ORDERS NOTED. BOLUS OF LR STARTED
[2019-09-16 04:10] LABS: Alanine Aminotransfer (ALT/SGP 22 U/L (12-78); Albumin, Blood 2.9 g/dL (3.4-5.0); Alk Phos 39 U/L (50-136); Anion Gap 8 mmol/L (6-16); Aspartate Aminotrans (AST/SGOT 17 U/L (12-37); Bilirubin, Total 0.5 mg/dL (0.1-1.0); Blood Urea Nitrogen 13 mg/dL (8-24); Bun/Creatinine Ratio 26.5 (12.0-20.0); CO2, Blood 23 mmol/L (21-32); Calcium, Blood 8.4 mg/dL (8.5-10.1); Chloride, Blood 104 mmol/L (98-108); Creatinine, Blood 0.49 mg/dL (0.40-1.00); Globulin, Blood 2.9 g/dL (2.2-4.0); Glomerular Filtration Rate >60 (60-); Glucose, Blood 121 mg/dL (70-99); Potassium, Blood 3.7 mmol/L (3.5-5.5); Sodium, Blood 135 mmol/L (136-145); Total Protein, Blood 5.8 g/dL (6.4-8.2)
--- NOTE | 2019-09-16 06:51 | NUR ---
ASHIFT SUMMARY RESTS QUIETLY WHEN UNDISTURBED MONITOR INTACT SHOWING SINUS TACH HEART RATE 100'S-110'S. LUNG SOUNDS CLEAR UPPER LOBES WITH DECREASED SOUNDS IN THE BASES. RESPIRATIONS REGULAR AND EASY WITH O2 IN PLACE AT 5L/MIN PER NASAL CANNULA SPOL2 89-97% FREQUENT REMINDERS TO LEAVE O2 IN NARES. ABDOMEN SOFT WITH BOWEL SOUNDS FOUR QUADS. BOTELLO PATENT DRAINING DK LORENZO URINE. GENERALIZED DEPENDENT EDMA TO UPPER EXTREMITIES. HAS RECIEVED TWO 1000ML BOLUSES THIS SHIFT. CONTINUE TO MONITOR AND REPORT CHANGE IN PATIENT CONDITION. ONE TO ONE SITTER REMAINS.
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
--- NOTE | 2019-09-16 10:07 | NUR ---
DR MONTEIRO: PROVIDER AT BEDSIDE TO EVAL PT AT APPROX 0900. HE HAS SPOKEN W/ EARLENE Wan, RN, ABOUT POC. STS OKAY FOR PT TO HAVE REGULAR DIET & IF PT REMAINS STABLE THIS AFTERNOON, MAY BE PCU STATUS.
--- NOTE | 2019-09-16 11:40 | NUR ---
CALL TO PROVIDER: THIS RN CALLED DR MONTEIRO AFTER PT HAVING CONTINUED C/O HEADACHE & SHOULDER PAIN THAT IS WORSENING. INFORMED PT THAT SHE SHOULD NOT TAKE ANYTHING THAT MAY MAKE HER DROWSY DR FLEMING HAS YET TO SEE HER. SHE STS THAT SHE HAS TAKEN TORADOL BEFORE & THAT THE MEDICATION WORKED WELL FOR HER. NOTIFIED DR MONTEIRO OF THIS & HE STS HE WILL BE PLACING ORDERS FOR TORADOL & TYLENOL ALSO.
--- NOTE | 2019-09-16 13:04 | NUR ---
PT c/o nausea. RN notifed. Pt tossing and turning in bed. moaning saying her anxitey is high do to not see her the last week do to being in here and also found out the day she took the meds her "mom" has . PT is hoping that the "DR" will be here soon. I asked her what dr she is waiting for because the hospitalist has already came in. She wasn't sure what dr just that she wants meds to feel better.
--- NOTE | 2019-09-16 14:30 | NUR ---
DR FLEMING: PROVIDER AT BEDSIDE TO EVAL PT. ORDERS PLACED FOR PT TO BE MODERATE SI RISK, 1:1 SITTER D/C'd & PT IS NOW ON CAMERA INSTEAD. MEDS ORDERED PER EMAR FOR SLEEP. PROVIDER WOULD LIKE ONE MORE NIGHT OF REST FOR THE PT & SITUATION WILL BE READRESSED TOMORROW.
--- NOTE | 2019-09-16 16:21 | NUR ---
CALL TO MD MONTEIRO SPOKE WITH MD MONTEIRO ABOUT TACHYPNEA, SPO2 93% ON 6L NC, AND INCREASING SOB. AFEBRILE 100.4; WILL ADMINISTER TYELNOL. RT CONSULTED FOR POSSIBLE BIPAP. IVF STOPPED. WILL INIATIATE USE OF FLUTTER VALVE AND IS.
--- NOTE | 2019-09-16 18:01 | NUR ---
UPDATE: CALL TO DR MONTEIRO TO UPDATE HIM ON PT's DESCRIPTION OF "CRUSHING CP." EKG COMPLETED PRIOR TO CALLING PROVIDER, UPDATED HIM ON EKG READING. HE STS TO GIVE THE PT ANOTHER DOSE OF ATIVAN & ANOTHER DOSE OF TORADOL WELL TO SEE IF IMPROVEMENT OCCURS. WILL MEDICATE ORDERED.
--- NOTE | 2019-09-16 18:54 | NUR ---
SHIFT SUMMARY: NO ACUTE CHANGES SINCE PRIOR UPDATES. PT REMAINS ANXIOUS, INTERMITTENTLY STATING SHE CAN'T BREATHE & THEN MOMENTS LATER IS RESTING CALMLY. THE PT IS UPSET THAT SHE CANNOT SPEAK W/ HER WHENEVER SHE WOULD LIKE TO BUT HAS PRIOR STATED THAT HE ATTEMPTED TO LEAVE HER WHICH IS WHY SHE HAD TOOK THE PILLS. LS REMAIN CLEAR T/O, PT NOW ON 8L NC W/ O2 SATS > 90%, DESATS QUICKLY TO 85% W/ REMOVAL OF O2. MONITOR SHOWS ST W/ HR 110s, BP STABLE. PT VOIDING W/O DIFFICULTY, NO BM THIS SHIFT. SKIN CONDITION UNCHANGED. WILL CONTINUE TO MONITOR & REPORT OFF TO ONCOMING RN.
--- NOTE | 2019-09-16 19:46 | NUR ---
ASSUMED CARE AT 1900. PT MOOD IS LABILE, PLEASANT BUT ANXIOUS. NO FAMILY AT BEDSIDE. KVO RUNNING THROUGH IV, NO OTHER I-TRACE PERFORMED/ PRESENT. PT SITTING IN BED, THEN ON SIDE, THEN BACK TO SITTING. VERY ACTIVE.
--- NOTE | 2019-09-16 21:53 | NUR ---
PT'S OXYGEN REQUIREMENTS INCREASING RAPIDLY. PT NOW ON 15L, AFTER ATTEMPTING 13 AND 11. PT RESPIRATORY RATE STILL ABOVE 40, SATS ARE VARYING 85-90%.
[2019-09-16 22:17] LABS: PCO2 Arterial 31.9 mmHg (35-45); PO2 Arterial 60.3 mmHg (80-100); pH Blood Arterial 7.47 (7.35-7.45)
--- NOTE | 2019-09-17 00:55 | NUR ---
DECREASED SATURATIONS/CALL TO O2 SATS ARE 82-84% ON AIRVO 60L/89% FIO2. RR 40s. PT ROUSES TO STIMULI AND APPEARS RESTLESS. PULLING ON AIRVO TUBING REPEATEDLY. NORI KIMBROUGH NP, NOTIFIED AND REQUESTS CALL TO DR. PEPE AT THIS TIME.
--- NOTE | 2019-09-17 01:20 | NUR ---
CALL TO MD DR. PEPE CALLED AT 0110 AND 0115. RETURN CALL RECEIVED AT THIS TIME. UPDATE GIVEN TO MD AND TREATMENT PLAN DISCUSSED. AFTER DISCUSSION WITH RN AND RT, DR. PEPE MADE DECISION TO INTUBATE PATIENT.
--- NOTE | 2019-09-17 02:00 | NUR ---
INTUBATION DR. PEPE IN ROOM AT 0144 WITH 1 RT AND 2 RNs. PT MEDICATED WITH ETOMIDATE 20MG AND SUCCINYLCHOLINE 150MG IB GIVEN AT 0146 FOR INTUBATION. INTUBATED AT 0149- 7.5 ETT, 24 AT LIP. OG PLACED WITHOUT DIFFICULTY. VERSED 2MG IV GIVEN AT 0155 FOR INCREASED AGITATION. BILATERAL SOFT WRIST RESTRAINTS INITIATED AT 0200. PROPOFOL STARTED AT 50MCG/KG/MIN AND PRECEDEX INCREASED TO 0.7MCG/KG/HR D/T SEVERE AGITATION. BOTELLO CATHETER PLACED AND UA SENT. SEE RT DOCUMENTATION FOR INTUBATION NOTES.
[2019-09-17 02:20] LABS: BASOPHILS ABSOLUTE AUTO 0.02 K/mm3 (0.00-0.23); BASOPHILS PERCENT AUTO 0 % (0-2); EOSINOPHILS ABSOLUTE AUTO 0.03 K/mm3 (0.00-0.68); EOSINOPHILS PERCENT AUTO 0 % (0-6); Hematocrit 32.7 % (33.0-51.0); IMMATURE GRAN ABSOLUTE AUTO 0.07 K/mm3 (0.00-0.10); IMMATURE GRAN PERCENT AUTO 1 % (0-1); LYMPHOCYTES ABSOLUTE AUTO 3.02 K/mm3 (0.84-5.20); LYMPHOCYTES PERCENT AUTO 20 % (21-46); MONOCYTES ABSOLUTE AUTO 1.46 K/mm3 (0.16-1.47); MONOCYTES PERCENT AUTO 10 % (4-13); Mean Corpuscular HGB 30.3 pg (26.0-34.0); Mean Corpuscular HGB Conc 33.6 g/dL (31.5-36.5); Mean Corpuscular Volume 90 fL (80-100); Mean Platelet Volume 10.8 fL (9.1-12.4); NEUTROPHILS ABSOLUTE AUTO 10.52 K/mm3 (1.96-9.15); NEUTROPHILS PERCENT AUTO 70 % (41-73); Platelet Count 291 K/mm3 (150-400); RDW Coefficient Variation 13.7 % (11.7-14.2); RDW Standard Deviation 45.4 fL (35.1-46.3); Red Blood Cell Count 3.63 M/mm3 (3.80-5.20); White Blood Cell Count 15.12 K/mm3 (4.00-11.30)
[2019-09-17 02:35] LABS: Anion Gap 7 mmol/L (6-16); Blood Urea Nitrogen 18 mg/dL (8-24); Bun/Creatinine Ratio 34.1 (12.0-20.0); CO2, Blood 24 mmol/L (21-32); Calcium, Blood 8.2 mg/dL (8.5-10.1); Chloride, Blood 104 mmol/L (98-108); Creatinine, Blood 0.53 mg/dL (0.40-1.00); Glomerular Filtration Rate >60 (60-); Glucose, Blood 134 mg/dL (70-99); Potassium, Blood 4.5 mmol/L (3.5-5.5); Sodium, Blood 135 mmol/L (136-145)
[2019-09-17 02:54] LABS: PCO2 Arterial 36.9 mmHg (35-45); PO2 Arterial 69.6 mmHg (80-100); pH Blood Arterial 7.42 (7.35-7.45)
[2019-09-17 03:00] LABS: Source, Urine Catheter
[2019-09-17 03:02] LABS: Bilirubin, Urine Neg (Neg); Blood, Urine 1+ (Neg); Glucose Qualitative, Urine Neg (Neg); Ketones, Urine Neg (Neg); Leukocyte Esterase, Urine Neg (Neg); Nitrite, Urine Neg (Neg); Protein, Urine 1+ (Neg); Specific Gravity, Urine 1.015 (1.003-1.022); Urobilinogen, Urine NORM (Normal)
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
[2019-09-17 03:12] LABS: Appearance, Urine Clear (Clear); Color, Urine Yellow (P-Yellow)
[2019-09-17 03:14] LABS: Red Blood Cells, Urine 0-2 /hpf (0-2); Squamous Epithelial Cells Rare /hpf (Few); White Blood Cells, Urine 0-2 /hpf (0-5)
[2019-09-17 03:15] LABS: Bacteria Rare /hpf; Mucus Light (0-Heavy)
--- NOTE | 2019-09-17 06:31 | NUR ---
PT TOLERATING VENT NOW, AND HAS WEANED PRECEDEX DOWN TO 0.5, PROPOFOL REMAINS AT 50. VENT HAS BEEN WEANED DOWN TO 75% FIO2, AND PT IS TOLERATING WELL (98% SAT). BOTELLO EMPLACED IS PATENT AND DRAINING LIGHT YELLOW URINE, SAMPLE SENT TO LAB. ORDERS RECEIVED FOR NEW ABX, AND LOW SUICIDE RISK WHILE INTUBATED/ SEDATED.
--- NOTE | 2019-09-17 08:30 | NUR ---
[place] of Care: Care assumed at 0700hr. Patient intubated and sedated. Propofol gtt at 50mcg/kg/min, Precedex gtt at 0.5mcg/kg/hr. Patient minimally responsive, not moving any extremities. shook head [id number] with deep oral suctioning. Propofol gtt decreased to 45mcg/kg/min, will continue to decrease sedation as tolerated/safe. Vent to AC-20/350/12/65%, spO2-98%. Tolerating vent without difficulty. HR/BP stable. Fox cath in place, draining light yellow clear urine. Dr. Larsen to room this morning, stated plan for echocardiogram today. Also spoke with Dr. Larsen about starting Lovenox injections for VTE prophylactic . Bilateral soft wrist restraints in place to protect lines, tubes, cords. Will continue to monitor.
--- NOTE | 2019-09-17 18:36 | NUR ---
Shift Summary: Patient remains intubated/sedated throughout shift. Propofol and precedex gtt decreased throughout 1st half of shift. Patient remained sedated until approx 1400hr, when she woke and became very restless/agitated. Patient thrashing in bed, reaching for ETT, respiratory rate increased to 40's and spO2 decreased to 82-84%. Unable to verbally re-direct or calm patient. Prn Ativan given x1, propofol gtt increased to 50mcg/kg/min, and precedex gtt increased to 0.1mcg/kg/min. Patient slowly became calm/sedated, VS returned to wnl. Precedex gtt since titrated down to 0.3. Power-glide placed to EVARISTO without difficulty, remains patent and intact. Fox cath patent and intact, draining light yellow clear urine. TF started at approx 1630hr, started at 25ml/hr Vital HP, with 30ml H20 q4hr. Soft wrist restraints remain in place for safety. Will continue to monitor until report to NOC shift RN.
--- NOTE | 2019-09-17 20:54 | NUR ---
REASSESSMENT COMPLETED ON PT'S SUICIDE RISK WITH "NO" ANSWERS PT IS INTUBATED/ SEDATED AND UNABLE TO ANSWER OR ABLE TO HARM SELF. REPORT RECEIVED FROM SONI DE JESUS. PT IS MAINTAINING OXYGEN SATS ON VENT AC 20/ 350/ 10/ 55%. PT MOVED HEAD SLIGHTLY WHEN PERFORMING ORAL CARE, BUT IS NOT RESPONSIVE IN ANY OTHER WAY, OR MOVING ANY LIMBS.
--- NOTE | 2019-09-18 02:20 | NUR ---
RESTARTED PT'S TUBE FEEDING AFTER REINSTILLING 30ML RESIDUAL, DOWN FROM 340ML. CHANGE TO GOAL WILL BE DELAYED UNTIL 1020 AM.
[2019-09-18 03:22] LABS: BASOPHILS ABSOLUTE AUTO 0.02 K/mm3 (0.00-0.23); BASOPHILS PERCENT AUTO 0 % (0-2); EOSINOPHILS ABSOLUTE AUTO 0.27 K/mm3 (0.00-0.68); EOSINOPHILS PERCENT AUTO 3 % (0-6); Hemoglobin 10.5 g/dL (11.5-16.0); IMMATURE GRAN ABSOLUTE AUTO 0.03 K/mm3 (0.00-0.10); IMMATURE GRAN PERCENT AUTO 0 % (0-1); LYMPHOCYTES ABSOLUTE AUTO 1.31 K/mm3 (0.84-5.20); LYMPHOCYTES PERCENT AUTO 14 % (21-46); MONOCYTES ABSOLUTE AUTO 1.06 K/mm3 (0.16-1.47); MONOCYTES PERCENT AUTO 11 % (4-13); Mean Corpuscular HGB 30.5 pg (26.0-34.0); Mean Corpuscular HGB Conc 32.8 g/dL (31.5-36.5); Mean Corpuscular Volume 93 fL (80-100); Mean Platelet Volume 10.6 fL (9.1-12.4); NEUTROPHILS ABSOLUTE AUTO 6.76 K/mm3 (1.96-9.15); NEUTROPHILS PERCENT AUTO 72 % (41-73); Platelet Count 240 K/mm3 (150-400); RDW Coefficient Variation 14.1 % (11.7-14.2); RDW Standard Deviation 47.6 fL (35.1-46.3); Red Blood Cell Count 3.44 M/mm3 (3.80-5.20); White Blood Cell Count 9.45 K/mm3 (4.00-11.30)
[2019-09-18 03:43] LABS: Albumin, Blood 3.2 g/dL (3.4-5.0); Anion Gap 7 mmol/L (6-16); Blood Urea Nitrogen 16 mg/dL (8-24); Bun/Creatinine Ratio 28.3 (12.0-20.0); CO2, Blood 25 mmol/L (21-32); Calcium, Blood 8.5 mg/dL (8.5-10.1); Chloride, Blood 113 mmol/L (98-108); Creatinine, Blood 0.57 mg/dL (0.40-1.00); Glomerular Filtration Rate >60 (60-); Glucose, Blood 82 mg/dL (70-99); Phosphorus, Blood 3.3 mg/dL (2.5-4.9); Potassium, Blood 3.7 mmol/L (3.5-5.5); Sodium, Blood 145 mmol/L (136-145)
--- NOTE | 2019-09-18 06:05 | NUR ---
PT DID NOT TOLERATE CARE. RECOVERY TIME FOR PT TO TOLERATE VENT INCREASED, AND MEDICATIONS WERE INEFFECTUAL. DR. NOLASCO NOTIFIED, AND FENTANYL GTT STARTED. PT'S PROPOFOL AND PRECEDEX LOWERED, AND PT IS TOLERATING VENT. RIGHT FOREARM IV REMOVED, ARM HAD A LIGHT PINK STREAK. FOLLOWED TO SOURCE, THERE WAS A SMALL ULCER UNDER THE TAPE. IV REMOVED IN CASE IT WAS SOURCE. LACTATED RINGER'S WAS ONLY CONTINUOUS GTT RUNNING THIS EVENING. IV FLUSHED, AND FLUSH WAS PALPATED, AND STILL HAD SOME BLOOD RETURN. SKIN IS NOT SWOLLEN, OR LEAKING.
--- NOTE | 2019-09-18 07:37 | NUR ---
ASSUMED CARE OF PT AT 0715. SHE IS SEDATED, INTUBATED, AND BILAT WRISTS ARE RESTRAINED. VENT SETTINGS: AC/20/350/50%/PEEP 10, TOLERATING AT THIS TIME. TF INFUSING AT 25 ML/HR. LR @ 50, PROPOFOL @ 60 MCG/KG/HR, PRECEDEX @ 0.3 ML/HR, AND FENTANYL SUPERVISOR SHOP AT 25 MCG/HR. APPEARS CALM AT THIS TIME.
--- NOTE | 2019-09-18 08:28 | NUR ---
SEDATION VACATION STARTED AT 08. PT AWAKENED AT 0832. DID NOT OPEN HER EUYES, BUT FOLLOWED COMMANDS AND ANSWERED YES/NO QUESTIONS BY NODDING OR SHAKING HER HEAD. REORIENTED HER TO HER LOCATION AND REASON FOR ADMISSION AND WHAT I WAS DOING I WAS DOING IT. RR CLIMBED TO MID 30'S AND SHE WAS THRASHING HER LEGS IN BED, FIGHTING VENT AND RESTRAINTS. PROPOFOL RE-STARTED AND SEDATION SUCCESSFUL.
--- NOTE | 2019-09-18 08:40 | NUR ---
PT INTUBATED, UNABLE TO ANSWER QUESTIONS FOR SUICIDE REASSESSMENT.
--- NOTE | 2019-09-18 08:46 | NUR ---
SPOKE TO PT'S SPOUSE FILIBERTO BY PHONE, GAVE UPDATE ON PT CONDITION, ANSWERED ALL QUESTIONS.
--- NOTE | 2019-09-18 10:39 | NUR ---
SPOKE TO LISHA FROM POISON CONTROL; GAVE UPDATE ON PATIENT CONDITION, VS, VENT SETTINGS, LOC. STATED THEY WILL FOLLOW EVERY OTHER DAY NOW, BUT WE ARE WELCOME TO CALL WITH QUESTIONS/CONCERNS.
--- NOTE | 2019-09-18 12:28 | NUR ---
REASSESSMENT; INCREASED RATE OF PROPOFOL FROM 55 TO 60 MCG/KG/HR D/T UNDERSEDATION. SHE WAS ABLE TO ANSWER YES/NO QUESTIONS. NO CHANGES TO SKIN ASSESSMENT. VENT SETTINGS: AC/20/350/50% FIO2/PEEP 10; RR 20-25, O2 SAT 97-99%, TOLERATING VENT. COVID 19 RESULT WAS NEGATIVE, TAKEN OFF ISOLATION PRECAUTIONS. TF INFUSING AT 25 ML/HR PER CHILD SPECIALIST D/T RATE OF PROPOFOL, RESIDUAL 10 ML. PRECEDEX @ 0.3 MCG/KG/HR, FENTANYL C JAVA DEVELOPER @ 25 MCG/HR, LR @ 50 ML/HR. BOTELLO DRAINING ADEQUATE URINE. COVERED PT WITH WARM BLANKET AFTER SHE NODDED "YES" WHEN ASKED IF SHE WAS COLD.
--- NOTE | 2019-09-18 18:29 | NUR ---
CARE ASSUMED/SUMMARY REPORT RECEIVED, CARE ASSUMED AT 1600 FROM NEAL MADDOX. SINCE ASSUMPTION OF CARE, VENT SETTINGS UNCHANGED. VITALS STABLE. PT TOLERATING TURNS/CARES. SEDATION UNCHANGED. TUBE FEED RATE TURNED DOWN TO 20 ML/HR PER ORDERS. BOTELLO WITH ADEQUATE OUTPUT. SEE I/O'S. BILAT WRIST RESTRAINTS FOR SAFETY.
--- NOTE | 2019-09-18 19:00 | NUR ---
ASSUMED CARE ASSUMED CARE OF PATIENT. REMAINS INTUBATED- AC 20, TV 350, PEEP 10, FIO2 20%. RR 22. SEDATED WITH PROPOFOL @ 60MCG/KG/MIN AND PRECEDEX @ 0.3MCG/KG/HR. BILATERAL SOFT WRIST RESTRAINTS IN PLACE TO PREVENT SELF-EXTUBATION. GROSS MOTOR MOVEMENT NOTED. NOT FOLLOWING COMMANDS. TERRY, 2MM, SLUGGISH. FACIAL GRIMACING NOTED. FENTANYL GTT AT 25MCG/HR. MONITOR SHOWS SR, RATE 70s. BP STABLE. OG WITH VITAL HIGH PROTEIN AT GOAL RATE OF 20CC/HR. BOTELLO PATENT AND DRAINING CLEAR YELLOW URINE. LR INFUSING AT 50CC/HR PER ORDER. PAS TO BLE. SEE SHIFT ASSESSMENT FOR FULL ASSESSMENT.
--- NOTE | 2019-09-18 19:13 | NUR ---
REPORT TO NEAL MANN TO ASSUME CARE
[2019-09-19 03:55] LABS: BASOPHILS ABSOLUTE AUTO 0.02 K/mm3 (0.00-0.23); BASOPHILS PERCENT AUTO 0 % (0-2); EOSINOPHILS ABSOLUTE AUTO 0.37 K/mm3 (0.00-0.68); EOSINOPHILS PERCENT AUTO 5 % (0-6); Hemoglobin 10.4 g/dL (11.5-16.0); IMMATURE GRAN ABSOLUTE AUTO 0.03 K/mm3 (0.00-0.10); IMMATURE GRAN PERCENT AUTO 0 % (0-1); LYMPHOCYTES ABSOLUTE AUTO 2.04 K/mm3 (0.84-5.20); LYMPHOCYTES PERCENT AUTO 28 % (21-46); MONOCYTES ABSOLUTE AUTO 0.77 K/mm3 (0.16-1.47); MONOCYTES PERCENT AUTO 11 % (4-13); Mean Corpuscular HGB 30.4 pg (26.0-34.0); Mean Corpuscular HGB Conc 32.5 g/dL (31.5-36.5); Mean Corpuscular Volume 94 fL (80-100); Mean Platelet Volume 10.5 fL (9.1-12.4); NEUTROPHILS ABSOLUTE AUTO 4.04 K/mm3 (1.96-9.15); NEUTROPHILS PERCENT AUTO 56 % (41-73); Platelet Count 272 K/mm3 (150-400); RDW Coefficient Variation 14.6 % (11.7-14.2); RDW Standard Deviation 49.6 fL (35.1-46.3); Red Blood Cell Count 3.42 M/mm3 (3.80-5.20); White Blood Cell Count 7.27 K/mm3 (4.00-11.30)
[2019-09-19 04:14] LABS: Albumin, Blood 2.6 g/dL (3.4-5.0); Anion Gap 6 mmol/L (6-16); Blood Urea Nitrogen 20 mg/dL (8-24); Bun/Creatinine Ratio 33.1 (12.0-20.0); CO2, Blood 24 mmol/L (21-32); Calcium, Blood 7.9 mg/dL (8.5-10.1); Chloride, Blood 113 mmol/L (98-108); Creatinine, Blood 0.61 mg/dL (0.40-1.00); Glomerular Filtration Rate >60 (60-); Glucose, Blood 86 mg/dL (70-99); Magnesium, Blood 2.2 mg/dL (1.6-2.4); Phosphorus, Blood 3.5 mg/dL (2.5-4.9); Potassium, Blood 3.3 mmol/L (3.5-5.5); Sodium, Blood 143 mmol/L (136-145)
[2019-09-19 04:30] LABS: Vancomycin, Trough 20.5 ug/mL (5.0-10.0)
--- NOTE | 2019-09-19 04:55 | NUR ---
AGITATION PT THRASHING AROUND IN BED, PULLING AGAINST RESTRAINTS. RAC IV NOTED TO BE INFILTRATED. NEW IV PLACED TO KARMA AND SEDATION RESTARTED AND INCREASED TO CONTROL AGITATION.
--- NOTE | 2019-09-19 06:30 | NUR ---
SHIFT SUMMARY NO ACUTE CHANGES. REMAINS INTUBATED. SEDATED WITH PROPOFOL AND PRECEDEX- SEE FLOWSHEET FOR TITRATIONS. PROPOFOL IS NOW INFUSING @ 55MCG/KG/MIN AND PRECEDEX IS INFUSING @ 0.3MCG/KG/HR. FENTANYL GTT CONTINUES @ 25MCG/HR. BILATERAL SOFT WRIST RESTRAINTS REMAIN IN PLACE. PT BECOMES AGITATED AND RESTLESS WHEN SEDATION IS DECREASED. DID FOLLOW SIMPLE COMMANDS AND NODDED HEAD SEEMINGLY APPROPRIATELY TO YES/NO QUESTIONS. VSS T/O SHIFT. VITAL HIGH PROTEIN AT GOAL RATE OF 20CC/HR. RESIDUALS WNL. BOTELLO PATENT AND DRAINING. SCD TO BLEs. WILL REPORT TO DAY SHIFT RN WHEN AVAILABLE.
--- NOTE | 2019-09-19 07:50 | NUR ---
ASSUMED CARE RECEIEVED REPORT FROM NEAL MANN. PT IS LYING ON HER RIGHT SIDE INTUBATED WITH 7.5 ETT, 25 AT LIP (24 @ TEETH). CURRENT VENT SETTINGS ARE AC20/350//40%. HER RASS IS -2, CPOT OF 1 (TENSION IN HER FACIAL EXPRESSION). NO SIGNS OF DISTRESS; VITAL SIGNS ARE NORMAL, SINUS RHYTHM, RR 21, SATS 95% (CONSISTENT, DECENT PLETH ON MONITOR), 9L/MIN MINUTE VENTILATION, AFEBRILE. SHE HAS BILATERAL SCD'S ON. A PATENT BOTELLO DRAINING YELLOW URINE. SOFT RESTRAINTS SECURED TO BED AND BILATERAL WRISTS. CURRENT GTTPS: PROPOFOL 55MCG/KG/MIN, PRECEDEX 0.4MCG/KG/HOUR, FENT OPERATIONS INTELLIGENCE CONTINUOUS ONLY AT 25MCG/HOUR LR 50ML/HR, AND NS TKO. PT IS RECEIVING VITAL HIGH PROTEIN TF AT 20ML/HR WITH Q4H 30ML WATER FLUSHES. BED IS LOW AND LOCKED.
[2019-09-19 09:54] LABS: Vancomycin, Random 13.3 ug/mL
--- NOTE | 2019-09-19 11:03 | NUR ---
UPDATE/JED ADKINS IN ROOM ASSESSING PT AND DISCUSSING PLAN OF CARE WITH ME. WE ARE GOING TO DC FENTANYL PAPER CARRIER AND USE FENTANYL PUSHES PRN, ALONG WITH TITRATING DOWN ON PROPOFOL AND TITRATING UP ON PRECEDEX NEEDED THE HEART RATE PERMITS. WE ARE ALSO GOING TO DC THE LR AT 50ML/HR AND LEVAQUIN.
--- NOTE | 2019-09-19 12:15 | NUR ---
SCHOOL PHYSICAL THERAPIST ISSUE WHEN THE SCHOOL PHYSICAL THERAPIST FENTANYL GTTP WAS DISCONTINUED I WENT TO CLEAR THE PUMP AND WASTED THE FENTANYL WITH NEAL LUNDBERG. THE "CLEAR ACCUMULATED VOLUME" REPORTED "32ML". BUT ONLY ONE BAG HAD BEEN SCANNED GIVEN WHICH WAS 09/18/19 AT 0446. THE NEXT BAG WAS PICKED UP AT 0355 ON 09/19/19 BUT IT WAS NOT SCANNED IN GIVEN, HOWEVER THAT SAME MORNING AT 0528 IT WAS SCANNED NOT GIVEN MACKENZIE AND CRISTINA WERE CLEARING THE PUMP AND ACCOUNTING FOR THE INTAKE OF FENTANYL DURING THEIR SHIFT. THERE MUST HAVE BEEN AN ISSUE, BECAUSE THE PUMP REPORTED 32ML, SO IT SEEMS THE PUMP WAS NEVER ACTUALLY CLEARED. I WASTED 22 ML (VERIFIED BY TAMEKA Floyd RN). SINCE THE LAST SCAN (AT 0528) TILL ~1130; 6 HOURS - SHOULD HAVE ONLY GIVEN 6ML LEAVING 2 MORE ML TO COUNT FOR. WHICH IF YOU ACCOUNT FOR THE TIME THAT MACKENZIE GOT THE FENTANYL BAG FROM PHARMACY TILL THE END OF HER SHIFT - IT MAKES SENSE (ALSO IF YOU ACCOUNT FOR THE VOLUME THAT MAY HAVE BEEN IN THE TUBE). THIS WAS BROUGHT UP TO THE CHARGE NURSE, JONATAN DE JESUS. AND TAMEKA DE JESUS HAS VERIFIED ALL THE ACTIONS INVOLVED WITH THIS.
--- NOTE | 2019-09-19 16:30 | NUR ---
NEURO WHEN SEDATION WAS SLIGHTLY LOWER, PT WAS AGITATED SLIGHTLY BUT WAS ABLE TO FOLLOW SOME COMMANDS. SHE COULD SHAKE HER HEAD NO AND YES, AND OPEN HER EYES ON COMMAND. POSITIVE BABINSKI AND CORNEAL REFLEXES. PUPILS WER 2/2, EQUAL AND REACTIVE TO LIGHT.
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
--- NOTE | 2019-09-19 18:19 | NUR ---
SHIFT SUMMARY CURRENTLY PT IS ON VENT AC 18/350/10/50% WITH PROPOFOL AT 45MCG/KG/MIN, PRECEDEX AT 0.8MCG/KG/HOUR, AND NS TKO. PT IS SEVERELY VOLUME OVERLOADED, BEING AROUND 15.5 L POSITIVE. HER LUNGS SOUNDED MORE MOIST/WET TOWARDS THE END OF THE SHIFT. PT HAD AN UNEVENTFUL FIRST PART OF THE SHIFT, BUT AFTER SOME STIMULATION/NOXIOUS STIMULI (BED BATH, REPOSITIONING, POWERGLIDE, ETC...) IN THE LATE AFTERNOON/EARLY EVENING SHE BECAME AGITATED AND HAD SOME RESPIRATORY DISTRESS UNABLE TO COMPENSATE WITH HER O2 SATS (MID 80'S). FIO2 WAS INCREASED 70%, PEEP BACK UP TO 10. SHE RECOVERED EVENTUALLY - AND I WAS ABLE TO DECREASE FIO2 BACK DOWN TO 50%. EARLIER TODAY SHE TOELRATED A SPONTANEOUS BREATHING TRIAL FOR A FEW HOURS 10/5, 40%. SHE MAINTAINED A RR 20-22 (A FEW TIMES OF AGITATION CAUSED HER TO PEAK IN THE HIGH 20'S/LOW 30'S, ALONG WITH SOME ELEVATED PEAK PRESSURES, 38-42). SHE WENT BACK INTO AC18/350/7/40% FOR ABOUT AN HOUR OR TWO BEFORE HER RESPIRATORY DISTRESS. SHE HAD GREAT URINE OUTPUT TODAY. LASIX BID WAS STARTED AROUND 1430. UOP WAS 3L, AND WE ENDED UP BEING ~-1L FOR THE SHIFT. BP HAS BEEN SOFT - SBP 80-90'S, MAP > 65 (DBP 60-70'S). SINUS RHYTHM, RATE IN 60'S WITH A FIRST DEGREE AVB. PT IS GETTING VITAL HIGH PROTEIN TF AT 20ML/HR, WITH Q4H 30 H2O FLUSHES. NO BM TODAY. MINIMAL RESIDUALS (<10ML). HER RESTRAINTS ARE SWB AND SECURED TO BED. SHE HAS SCD'S ON BILATERAL CALVES. BED IS LOW AND LOCKED. SHE DOES APPEAR TO HAVE RIGHT SHOULDER PAIN. AND SHE HAS HIGH ANXIETY PER . FILIBERTO () WISHES TO BE ON THE PHONE TALKNIG WTIH HER WHEN SHE UNDERGOES HER NEXT SBT - WILL REPORT TO [facility] NURSE. BED LOW AND LOCKED.
--- NOTE | 2019-09-19 19:30 | NUR ---
ASSUMED CARE NOTE: ASSUMED CARE OF PT @ 1900, RECEVIED REPORT FROM NEAL ESPINOSA. PT IS CURRENTLY VENTED AND SEDATED. VENT SETTINGS : AC18/350/10/45%, SPO2 ABOVE 90%. PT IS SEDATED WITH PROPOFOL @ 40MCG/KG/MIN AND PRECEDEX AT 1MCG/KG/HR, PT RESPONDS TO PAINFUL STIMULI. LUNG SOUNDS ARE COARSE T/O, DIM IN THE BASES. PT IS RECEVING 20ML/HR OF 1.0 VITAL HP TUBE FEEDING, LESS THAN 5ML FOR RESIDUAL. HYPOACTIVE BOWEL TONES HEARD. BOTELLO PATENT AND DRAINING YELOW CLEAR URINE. BED AT LOWEST LEVEL, BILAT SWR IN PLACE.
--- NOTE | 2019-09-20 01:22 | NUR ---
SEDATION VACATION: AT 25MCG/KG/MIN, AND 1 MCG/KG/HR OF PRECEDEX PT BEGAN TO MOVE HEAD BACK AND FORTH AND WAS UNABLE TO TOLERATE VENT. PT ATTEMPTED TO REACH FOR THE ETT, AND WAS KICKING LEGS . PT WAS ABLE TO OPEN EYES, WAS ABLE TO ANSWER YES/NO QUESTIONS WITH HEAD MOVEMENT. PT RR WENT INTO THE HIGH 40'S. PT WAS NOT PULLING GOOD TIDAL VOLUMES. ATIVAN WAS GIVEN AND SEDATION WAS INCREASED.
[2019-09-20 03:53] LABS: Base Excess Venous 0.5 mmol/L; Bicarbonate Venous 24.7 mmol/L (24.0-30.0); PCO2 Venous 41.5 mmHg (38-42); PO2 Venous 87.9 mmHg (38-42)
[2019-09-20 03:58] LABS: BASOPHILS ABSOLUTE AUTO 0.02 K/mm3 (0.00-0.23); BASOPHILS PERCENT AUTO 0 % (0-2); EOSINOPHILS ABSOLUTE AUTO 0.47 K/mm3 (0.00-0.68); EOSINOPHILS PERCENT AUTO 6 % (0-6); Hematocrit 32.8 % (33.0-51.0); Hemoglobin 10.8 g/dL (11.5-16.0); IMMATURE GRAN ABSOLUTE AUTO 0.03 K/mm3 (0.00-0.10); IMMATURE GRAN PERCENT AUTO 0 % (0-1); LYMPHOCYTES ABSOLUTE AUTO 1.78 K/mm3 (0.84-5.20); LYMPHOCYTES PERCENT AUTO 21 % (21-46); MONOCYTES ABSOLUTE AUTO 0.82 K/mm3 (0.16-1.47); MONOCYTES PERCENT AUTO 10 % (4-13); Mean Corpuscular HGB 30.7 pg (26.0-34.0); Mean Corpuscular HGB Conc 32.9 g/dL (31.5-36.5); Mean Corpuscular Volume 93 fL (80-100); Mean Platelet Volume 10.5 fL (9.1-12.4); NEUTROPHILS ABSOLUTE AUTO 5.45 K/mm3 (1.96-9.15); NEUTROPHILS PERCENT AUTO 64 % (41-73); Platelet Count 310 K/mm3 (150-400); RDW Coefficient Variation 14.1 % (11.7-14.2); RDW Standard Deviation 47.6 fL (35.1-46.3); Red Blood Cell Count 3.52 M/mm3 (3.80-5.20); White Blood Cell Count 8.57 K/mm3 (4.00-11.30)
[2019-09-20 04:19] LABS: Percent Saturation 16.2 % (15.0-50.0)
[2019-09-20 04:21] LABS: Alanine Aminotransfer (ALT/SGP 19 U/L (12-78); Albumin, Blood 2.5 g/dL (3.4-5.0); Albumin/Globulin Ratio 0.8 (0.8-1.8); Alk Phos 85 U/L (50-136); Anion Gap 4 mmol/L (6-16); Aspartate Aminotrans (AST/SGOT 21 U/L (12-37); Bilirubin, Direct 0.2 mg/dL (0.0-0.3); Bilirubin, Indirect 0.2 mg/dL (0.1-0.7); Bilirubin, Total 0.4 mg/dL (0.1-1.0); Blood Urea Nitrogen 19 mg/dL (8-24); Bun/Creatinine Ratio 38.7 (12.0-20.0); CO2, Blood 26 mmol/L (21-32); Calcium, Blood 8.2 mg/dL (8.5-10.1); Chloride, Blood 114 mmol/L (98-108); Creatinine, Blood 0.49 mg/dL (0.40-1.00); Glomerular Filtration Rate >60 (60-); Glucose, Blood 95 mg/dL (70-99); Phosphorus, Blood 3.5 mg/dL (2.5-4.9); Potassium, Blood 3.5 mmol/L (3.5-5.5); Sodium, Blood 144 mmol/L (136-145); Total Protein, Blood 5.5 g/dL (6.4-8.2)
--- NOTE | 2019-09-20 06:05 | NUR ---
SHIFT SUMMARY: SEE PREVIOUS NOTES. PT CONTINUES TO RESPOND TO PAINFUL STIMULI. PT WAS GIVEN A SEDATION VACATION THIS SHIFT (SEE SEDATION VACATION NOTE). PT'S VENT SETTINGS CHANGED TO AC18/350/10/35%, PT LUNG SOUNDS IMPROVED T/O SHIFT. PT HAS BEEN HAVING NONPRODUCTIVE COUGH. PT HAS BEEN MAINTAINING SATURATIONS ABOVE 90% PT HAS BEEN IN SINUS KOBE THROUGH THE ENTIRE SHIFT. HR BETWEEN 55-60, HR RISES INTO THE HIGH 60'S WITH AGITATION. BP STABLE. PT HAS REMAINED AFEBRILE. PT HAS BEEN RECEVING 20ML/HR OF 1.0 VITAL HP TUBE FEEDING VIA OG TUBE. PT HAS HAD LESS THAN 5ML OF RESIDUALS T/O SHIFT. NO BM THIS SHIFT. BOTELLO PATNET AND DRAINING CLEAR YELLOW URINE. URINE OUTPUT THIS SHIFT WAS 1850. BOTELLO CARE PROVIDED SEDATION CHANGES HAVE BEEN MADE. PROPOFOL HAS BEEN DECREASED TO 30MCG/KG/MIN AND PRECEDEX HAS INCREASED TO 1.4MCG/KG/HR, PER ORDER. PT WAS GIVEN 1MG OF ATIVAN FOR AGITATION AFTER SEDATION VACATION ATTEMPT. BED AT LOWEST LEVEL, WILL CONTINUE TO MONITOR PT UNTIL REPORT IS GIVEN TO ONCOMING SHIFT.
--- NOTE | 2019-09-20 07:17 | NUR ---
ASSUMED CARE RECEIVED REPORT FROM NEAL SEGURA. PT REMAINS SEDATED ABD INTUBATED ON VENT AC18/350/10/35%; ETT 24 @ TEETH. CURRENT GTTPS: PROPOFOL 30MCG/KG/MIN AND PRECEDEX 1.2MCG/KG/HR; CURRENT RASS IS -2; CPOT OF 1 (GRIMACE ON FACE). CURRENTLY, PT IS TOLERATING VENT WELL, RATE IS 18-20. PT IS IN SINUS BRADYCARDIA, RATE 53-54, BLOOD PRESSURE IS STABLE 102/74, 83. SPO2 IS 97%. PT HAS HEEL PROTECTING/PADDED BOOTS ON. SWB RESTRAINTS ARE SECURED TO PATIENT AND BED. SHE HAS A PATENT BOTELLO DRAINING YELLOW URINE. BED LOW AND LOCKED.
--- NOTE | 2019-09-20 11:45 | NUR ---
SBT/SEDATION VACATION PT WAS PUT ON SPONTANEOUS MODE 5/8, 45% ALONG WITH PROPOFOL DOWN TO 25MCG/KG/MIN, AND PRECEDEX DOWN TO 0.7MCG/KG/HOURAROUND 09. WAS ON PHONE TALKING TO HER TO HELP DECREASE HER ANXIETY. SHE DID REALLY WELL INITIALLY, MAINTAINING A RR OF 20-22, WITH ADEQUATE TIDAL VOLUMES, MINUTE VENTILATION AND O2 SATS. SHE WAS ABLE TO STAY RELATIVELY CALM AND COOPERATIVE. SHE FOLLOWED COMMANDS: SQUEEZED FINGERS, OPENED EYES, WIGGLED TOES, SHOOK HEAD YES & NO. SHE ALSO WAS ABLE TO USE A PEN AND WRITE ON PAPER INFORMING US THAT HER "THROAT HURT". AFTER ABOUT 15-20 MINUTES SHE BECAME INCREASINGLY RESTLESS AND ANXIOUS, INCREASING HER RR, AND DECREASING HER O2 SATS FROM FIGHTING THE VENTILATOR. SHE WAS REDIRECTABLE FOR ABOUT 10 MINUTES, LISTENING TO ME WHEN I SAID SLOW DEEP BREATHS, BUT EVENTUALLY IT BECAME TOO MUCH FOR HER. SHE WAS MOVING ALL EXTREMETIES, SWEATING PROFUSELY, BUCKING THE VENT, PULLING ON RESTRAINTS, ETC... SHE WAS PUT BACK ON AC SETTINGS 16/350/5/45% AND PROPOFOL AND PRECEDEX WAS TURNED UP, ALONG WITH A ORDER FOR PRN FENTANYL BOLUSES WAS IMPLEMENTED AND A DOSE WAS GIVEN. CPOT WOULD HAVE BEEN 6-7 DURING THIS STRESSFUL TIME FOR HER. A RASS OF -2 WAS EVENTUALLY ACHIEVED. IT SEEMS IT CAN BE DIFFICULT TO GET HER BACK TO A RASS OF -2 WHEN SHE IS A +2, BUT ONCE SHE REACHES -2 SHE CRUISES ON THE SEDATION.
--- NOTE | 2019-09-20 19:47 | NUR ---
ASSUMED CARE NOTE: ASSUMED CARE OF PT AT 1900, RECEVIED REPORT FROM TIFFANY DE JESUS. PT CONTINUES TO BE ON VENT WITH SETTINGS @ AC16/350/5/45%, SPO2 ABOVE 90% PT IS HAVING SCANT AMOUNTS OF WHITE/CLEAR SPUTUM. PT IS SEDATED WITH PROPOFOL 40MCG/KG/MIN, AND 0.8MCG/KG/HR OF PRECEDEX. OG TUBE IN PLACE WITH CONTINIOUS TUBE FEEDING RUNNING @ 35ML/HR OF 1.0 VITAL HP. PT IS IN SINUS KOBE WITH HR IN THE HIGH 50'S. ACTIVE BOWEL TONES HEARD IN ALL FOUR QUADRANTS. BOTELLO DRAINING YELLOW CLEAR URINE. PROTECTIVE BOOTS TO LOWER EXTREMITIES APPLIED. BED AT LOWEST LEVEL. WILL CONTINUE TO MONITOR PT, T/O SHIFT
--- NOTE | 2019-09-21 00:10 | NUR ---
PT WROTE OUT ON PAPER, WANTED TO SPEAK TO . PT CURRENTLY LISTENING TO PHONE. PT AGITATED.
--- NOTE | 2019-09-21 00:50 | NUR ---
PT NOT TOLERATING LESS THAN 1.4 mcg/kg/hr PRECEDEX, 55 mcg PROPOFOL. WHEN TITRATING DOWN, PT STARTS KICKING LEGS, BANGING HANDS ON RAILING, PULLING RESTRAINTS. BP CURRENTLY 89/64 MAP 71, HR 61 SATS 94%. WILL CONTTINUE TO MONITOR.
--- NOTE | 2019-09-21 02:12 | NUR ---
SINCE LAST NOTE, PT CALMED, PRECEDEX TITRATED TO 1.0 mcg/kg/hr, PROPOFOL CONTINUES AT 55 mcg. BP STABLE, HR 55, SATS >95%. WILL CONTINUE TO MONITOR.
[2019-09-21 04:31] LABS: Anion Gap 4 mmol/L (6-16); Blood Urea Nitrogen 17 mg/dL (8-24); Bun/Creatinine Ratio 32.2 (12.0-20.0); CO2, Blood 27 mmol/L (21-32); Calcium, Blood 8.3 mg/dL (8.5-10.1); Chloride, Blood 113 mmol/L (98-108); Creatinine, Blood 0.53 mg/dL (0.40-1.00); Glomerular Filtration Rate >60 (60-); Glucose, Blood 97 mg/dL (70-99); Potassium, Blood 3.6 mmol/L (3.5-5.5); Sodium, Blood 144 mmol/L (136-145)
--- NOTE | 2019-09-21 07:36 | NUR ---
ASSUMED CARE RECEIVED REPORT FROM NEAL CHURCH. PT IS LYING IN BED INTUBATED (ETT 25@ LIP) ON AC16/350/5/45% VENTILATION. CURRENT GTTPS: PROPOFOL 55 MCG/KG/MIN AND PRECEDEX 0.6 MCG/KG/HR. CURRENT RASS = -2. SHE HAS A PATENT BOTELLO DRAINING YELLOW URINE, ALONG HAVING SOFT WRIST RESTRAINTS SECURED TO BED AND BILATERAL WRISTS. SHE IS IN SINUS BRADYCARDIA, RATE 50-60; STABLE BP. SAT'S ARE 96%, AND SHE IS RIDING THE VENT. BED LOW AND LOCKED.
[2019-09-21 09:24] LABS: Vancomycin, Trough 14.2 ug/mL (5.0-10.0)
--- NOTE | 2019-09-21 10:00 | NUR ---
UPDATE PT HAS BEEN VERY AGITATED, RESTLESS AND FIGHTING THE VENT. SATING AT 86-89%, RR IN THE 40-50'S. HOWEVER, SHE IS CURRENTLY MORE CALM AND SYNCHRONOUS WITH THE VENT, SAT'ING 91%, RATE 26. HALDOL AND FENTANYL GIVEN. DR. ADKINS WANTS ME TO CUT THE PROPOFOL TO 20MCG/KG/MIN FOR A POTENTIAL EXTUBATION. A CHEST XRAY WILL BE DONE FIRST, AND WE WILL EVALUATE HER RESPIRATORY STATUS AND IF SHE IS ABLE TO REMAIN CALM FOR THE NEXT 45 MINUTES BEFORE DECIDING TO EXTUBATE.
--- NOTE | 2019-09-21 14:52 | NUR ---
EXTUBATION/UPDATE PT WAS EXTUBATED AT 1115 AND PLACED ON 4L NC. SHE IS NOW ON 2L NC SAT'ING LOW 90'S. SHE IS IN SINUS TACH, HR 100-120, WITH STABLE BP. SHE IS HAVING DIARRHEA, WITH MULTIPLE BM'S IN THE LAST FEW HOURS. SHE COMPLAINS OF RIGHT SHOULDER PAIN (HISTORY OF A RIGHT TORN LABRUM, DISLOCATION, AND TORN ROTATOR TUFF PER PATIENT). SHE DIDN'T REMEMBER WHAT HAPPENED INITIALLY BUT WHEN I TOLD HER A FEW DETAILS, SHE TOLD ME IT ALL CAME BACK TO HER. SHE DENIES BEING SUICIDAL NOW, AND THAT SHE "...NEVER WILL DO THAT AGAIN." SHE IS CURRENTLY ON A MODERATE RISK (ON CAMERA) SUICIDE PRECAUTIONS, AND ON A 2 MD HOLD. SHE WILL BE SEEN AND REEVALUATED MY DR. DE DIOS NEXT TIME HE IS WORKING (HOPEFULLY TOMORROW). BED LOW AND LOCKED. SHE IS USING CALL LIGHT, WHICH IS WITHIN REACH.
--- NOTE | 2019-09-21 17:35 | NUR ---
SHIFT SUMMARY PT WAS EXTUBATE TODAY. SHE IS NOW ON 3L NC, AND SAT'ING LOW 90'S. SHE HAS PAIN AND ANXIETY THAT PUTS HER RR 30+, AND HER SATS GO TO HIGH 80'S. THIS HAS BEEN HAPPENING INTERMITTENTLY; HER PAIN IS IN HER RIGHT SHOULDER AND HEAD; THE SHOULDER PAIN IS NOT NEW, SHE HAS HISTORY OF A DISLOCATION/TORN LABRUM/TORN ROTATOR CUFF. SHE HAS BEEN HAVING LOTS OF INCONTINENT DIARRHEA, SO NO SHE HAS A RECTAL TUBE. SHE MADE PLENTY OF URINE, AND THE BOTELLO CATHETER WAS REMOVED. SHE IS ON A 2MD HOLD, AND ON MODERATE RISK SUICIDE PRECAUTIONS. DR. DE DIOS WILL NEED TO REEVALUATE SOON HES BACK. SHE IS ON PRECEDEX AT 1MCG/KG/MIN. SHE IS FEBRILE WITH 100.4 TMAX. WHEN SHE GETS WORKED UP - HER FACE AND CHEST FLUSH AND HER TEMPERATURE, HR AND BP GO UP. SHE IS IN SINUS TACH, RATE 100-120; BP IS STABLE TO SLIGHTLY ELEVATED - SHE GOT RESTARTED ON NORVASC TODAY. SHE CAN BE "MANIPULATIVE" SHE HAS SOME BEHAVIORAL ISSUES, SHE WILL TALK TO ANYONE THAT WALKS BY THE ROOM, AND COMPLAIN ABOUT OTHER MEMBERS OF THE STAFF WHAT THEY 'DID OR DIDNT DO' THAT WAS BAD. I ALLOWED HER TO TALK TO HER ON THE PHONE A FEW TIMES SHE WAS JUST EXTUBATED TODAY AND EXEPRIENCING HIGH ANXIETY. BED IS LOW AND LOCKED. CALL LIGHT IS IN REACH.
--- NOTE | 2019-09-21 20:35 | NUR ---
Pt currently on phone with her agreed one-phonecall to . Pt has been calm and cooperative thus far. Pt cooperative with setting times and limits. VSS. Pt on RA, has productive cough. Is using IS and flutter valve PRN.
--- NOTE | 2019-09-21 21:13 | NUR ---
ORAL TEMP: 99.2
--- NOTE | 2019-09-22 07:18 | NUR ---
SHIFT SUMMARY: PT REMAINS ON PRECEDEX FOR HIGH LEVELS OF ANXIETY. VSS WHEN PT ON PRECDEX OTHERWISE BP AND HR ELEVATE. PT REMAINED CALM, COOPERATIVE, AND PLEASANT T/O NOC DESPITE GETTING UP TO USE THE COMMODE APPRX Q30MIN. (NOTE I+O'S). PT DENIES SI AND STATED, "OH GOSH NO" TO SI OR PLAN. PT GETS UP TO BEDSIDE COMMODE WITH ONLY STAND-BY ASSIST. PT EATING ICE CHIPS AND TRIED JELLO AT START OF SHIFT BUT CLAIMED CAUSED DIARRHEA. PT OTHERWISE LIES IN BED WATCHING TV. PT USES CALL LIGHT APPROPRIATELY. REPORT GIVEN TO JAYLA DE JESUS TO ASSUME CARE AT THIS TIME.
--- NOTE | 2019-09-22 08:03 | NUR ---
Received report from Jillian DE JESUS. Patient sitting up in bed with her legs crossed and pillow in lap. her speech is clear and she is able to communicate her needs. She knows self, place, and year and reason for admission. Face sheet sent to Dr Maier for follow up. She is on moderate Suicide precautions and have been in contact with camera site. She was on 3L O2 via NC at 97% and have removed to RA and sats 94%. She states 4/10 on anxiety scale and is on Precedex at 1.2 mcg/kg/hr which has been reduced to 0.7. She has been up to bedside cammode with 1400ml clear urine out and transfered self with SBA. She has Powerglide 18ga in EVARISTO dressing intact and infusing Precedex 1.2 mcg/kg/hr.
--- NOTE | 2019-09-22 09:01 | NUR ---
0830 I placed precedex on hold. and she has been doing fine with no change in anxiety level. She remains on RA anbd sats 97%. She has been up several more times and has had BM liquid stool. Tolerated am meds well. Dr Johnson has been in room and will advance her diet.
--- NOTE | 2019-09-22 10:37 | NUR ---
Patient has been up a half dozen times to urinate and had 2 liquid BM's. She thought she was getting warm and took oral temp and was 98.4. Placed fan on her to cool and reduce anxiety. She states she has been getting shaky and medicated her with Ativan 1 mg and recieved order for change to Q2P instead of 6QP.
--- NOTE | 2019-09-22 12:18 | NUR ---
No significant changes with patient. She continues to need to get to bedside cammode for urine or liquid stool. She remains mildly anxious and have medicated with Ativam 1 mg Q2P. She is going to try lunch when arrives. She constantly has prod. cough she spits up in kleenex's. HR 120's and systolic 130's with MAP >65. She remains on RA and sats upper 90%'s.
--- NOTE | 2019-09-22 14:00 | NUR ---
She is now PCU status and did well with lunch and ate about 70% of regular diet. Medicated for shakiness with 1 mg Ativan. No other significant changes. HR 120's and systolic still 130's. precedex remains off.
[2019-09-22 15:09] LABS: Anion Gap 7 mmol/L (6-16); Blood Urea Nitrogen 6 mg/dL (8-24); CO2, Blood 30 mmol/L (21-32); Calcium, Blood 9.2 mg/dL (8.5-10.1); Chloride, Blood 106 mmol/L (98-108); Creatinine, Blood 0.38 mg/dL (0.40-1.00); Glomerular Filtration Rate >60 (60-); Glucose, Blood 154 mg/dL (70-99); Potassium, Blood 2.8 mmol/L (3.5-5.5); Sodium, Blood 143 mmol/L (136-145)
--- NOTE | 2019-09-22 16:02 | NUR ---
Dr Mcbride was by and ordered chemistry and is now back and K is 2.8 and notified her and just started 60meq Potassium. Patient finally resting. She continues to call appropriately to get to beside cammode. VSS, See EMR. She remains decreased anxiety and sats upper 90%'s on RA. Awaiting PCU bed.
--- NOTE | 2019-09-22 17:35 | NUR ---
Patient has been doing better with her anxiety. Have not medicated since 1400 and she has not stated that she is very shaky as she did before. She has been looking tired and states a little tired. Dr Maier added Ambien to noc meds. VSS See EMR. Remains on RA and sats upper 90%'s. She has continued pottassium runing for three riders. Still awaiting PCU placement.
--- NOTE | 2019-09-22 21:57 | NUR ---
ASSUMED CARE OF PT, REPORT RCV'D FROM NEAL DICKERSON. PT ALERT AND ORIENTED OCCASIONALLY ANXIOUS BUT COOPERATIVE WITH CARE. PT STEADY ON HER FEET AND ABLE TO SAFELY AMBULATE TO BSC INDEPENDENTLY. PT FEBRILE WITH TEMPORAL TEMP 101.1, ORAL TEMP 100.0, PT GIVEN TYLENOL PER EMAR. PT'S UPDATED WITH PT'S STATUS AND PLAN OF CARE. SEE FULL SHIFT ASSESSMENT
--- NOTE | 2019-09-23 05:36 | NUR ---
NO ACUTE CHANGES OVERNIGHT. PT AFEBRILE, NO FURTHER COMPLAINT OF HEADACHE. PT ABLE INDEPENDENTLY AMBULATE TO BEDSIDE COMMODE. NEEDS ENCOURAGEMENT AND REMINDERS THAT SHE IS ABLE TO ASSIST WITH CARE AND AMBULATE WITHOUT ASSISTANCE. PT DID NOT REQUIRE PRECEDEX OR ATIVAN T/O SHIFT. PT DENIES ANXIETY. 2400 ML URINARY OUTPUT. PT REMAINS TACHYCARDIC HR 90-115, BP WNL. WILL REPORT TO DAYSHIFT NURSE
--- NOTE | 2019-09-23 07:27 | NUR ---
Recieved report from Milo DE JESUS. Patient awake and sitting up in bed. She is oriented to self, place and reason for admission. She is able to use call light and communicate her needs. She is on RA and sats 99% and lubna any decrease with exertion. She is up with SBA to bedside cammode. She c/o ongoing pain in right should from prior injury nad some discomfort in LE's. She is on regular diet and has tolerated well. She should be discharged today when hospitalist visits. She continues to deny any feelings of hurting herself or others. Her anxiety level is at a 2/10 and is looking to go home so she can rest.
[2019-09-23] MEDS ORDERED: ZOLP5 PO (10:37)
--- NOTE | 2019-09-23 10:51 | NUR ---
Patient had shower earlier this ama nd toerated by self and ambulated back to room with minimal SBA. She has been independent in room and VSS See EMR. Both Power glides pulled intact and sites WNL's. The aid assisted her with getting dressed and is on way to get her. Reviewed written discharge and all new meds as well as all her meds she needs to stop. She returned understanding and signed discharge.
--- NOTE | 2019-09-23 11:24 | NUR ---
patient's called and aid took to front of building via wheelchair with all personal belongings.
== END 2019-09-23 11:33 | disposition home or self-care (01) | DRG 314 ==
LOC: ER 19:29 → ICUW 19:30
PROVIDERS: Emergency Medicine; Hospitalist; Internal Medicine; Internal Medicine Critical Care Medicine; Internal Medicine Pulmonary Disease; Nurse Practitioner Acute Care; Pharmacist; ADMIT Internal Medicine
PROC: 0BH17EZ Insertion of Endotracheal Airway into Trachea, Via Natural or Artificial Opening (ICD-10-PCS; principal; 2019-09-17)
PROC: 5A1955Z Respiratory Ventilation, Greater than 96 Consecutive Hours (ICD-10-PCS; 2019-09-17)
DX: I95.9 Hypotension, unspecified (principal); G92 Toxic encephalopathy; J96.01 Acute respiratory failure with hypoxia; J69.0 Pneumonitis due to inhalation of food and vomit; I10 Essential (primary) hypertension; F31.9 Bipolar disorder, unspecified; F43.10 Post-traumatic stress disorder, unspecified; K21.9 Gastro-esophageal reflux disease without esophagitis; F60.3 Borderline personality disorder; E87.70 Fluid overload, unspecified; T46.1X2A Poisoning by calcium-channel blockers, intentional self-harm, initial encounter; T46.5X2A Poisoning by other antihypertensive drugs, intentional self-harm, initial encounter; T42.4X2A Poisoning by benzodiazepines, intentional self-harm, initial encounter; T43.022A Poisoning by tetracyclic antidepressants, intentional self-harm, initial encounter; T43.592A Poisoning by other antipsychotics and neuroleptics, intentional self-harm, initial encounter; Y92.9 Unspecified place or not applicable; Z78.1 Physical restraint status
CPT/HCPCS: 31500; 31720; 36415; 36600; 51702; 71045; 71046; 80048; 80053; 80069; 80202; 81001; 81003; 82248; 82728; 82803; 82947; 83540; 83550; 83735; 83880; 84100; 84132; 84484; 85025; 85610; 85730; 87070; 87086; 87205; 93005; 93010; 93306; 94002; 94003; 94640; 96361; 96361-59; 96365-59; 96375; 96375-59; 99285-25; A9270; C1751; C9113; G0378; G0480; J0330; J0692; J0696; J1630; J1650; J1885; J1940; J1956; J2060; J2250; J2405; J2704; J3010; J3370; J3480; J7030; J7040; J7050; J7120; P9046; U0002